=== PATIENT | male | born 1935 | race Caucasian/White ===

== ENCOUNTER 2019-07-03 10:36 | Emergency (ER) | payer MEDICARE, OTHER, SELFPAY ==
[2019-07-03 10:44] VITALS: BP 119/59; PULSE 77; RESP 20; TEMP 37.3; O2SAT 97; BMI 28.0
[2019-07-03 10:51] VITALS: O2SAT 98
[2019-07-03 11:08] LABS: Add Urine Microscopic? NO
[2019-07-03 11:23] LABS: Basophils % 0.4 %; Eosinophils % 0.3 %; Hematocrit 24.5 % (42.0-52.0); Hemoglobin 7.5 g/dL (11.7-16.6); Lymphocytes # 1.1 10^3/uL (0.8-4.8); Mean Corpuscular HGB Conc 30.6 g/dL (30.0-36.0); Mean Corpuscular Volume 88.1 fL (80-94); Mean Platelet Volume 9.6 fL (7.4-10.4); Neutrophils # 7.9 10^3/uL (1.8-7.7); Neutrophils % 77.8 %; Nucleated Red Blood Cells % 0 %; Platelet Count 540 10^3/cmm (130-400); Red Blood Count 2.78 10^6/uL (4.1-5.3); Red Cell Distribution Width 16.2 % (12.1-15.1); White Blood Count 10.1 10^3/uL (4.0-10.0)
[2019-07-03 11:28] LABS: Bilirubin Urine Neg (NEGATIVE); Blood Urine Neg (Negative); Glucose Urine UA Norm (Normal); Ketones Urine Negative (Negative); Nitrate Urine Negative (Negative); Protein Urine Neg (Negative); Urine Appearance Clear (CLEAR); Urine Color Straw (Yellow)
[2019-07-03 11:29] LABS: Leukocyte Esterase Urine Negative (Negative); Urobilinogen Urine 1 mg/dL (Negative)
[2019-07-03 11:30] VITALS: BP 126/52; PULSE 74; RESP 16; O2SAT 92
[2019-07-03 11:42] LABS: Alanine Aminotransferase 13 U/L (0-41); Albumin Level 3.3 g/dL (3.5-5.2); Alkaline Phosphatase 66 IU/L (40-130); Anion Gap 18.1 (5-19); Aspartate Amino Transferase 16 U/L (0-40); Blood Urea Nitrogen 13 mg/dL (8-23); Calcium 8.8 mg/dL (8.5-10.5); Carbon Dioxide 23 mmol/L (22-29); Chloride 95 mmol/L (98-107); Globulin 3.2 g/dL (1.3-4.6); Glucose 124 mg/dL (65-115); Osmolality Calculated 272 mOsm/kg (285-295); Potassium 4.1 mmol/L (3.5-5.1); Sodium 132 mmol/L (136-145); Total Bilirubin 0.2 mg/dL (0.15-1.2); Total Protein 6.5 g/dL (6.6-8.7)
[2019-07-03 12:00] VITALS: BP 122/63; PULSE 63; RESP 18; O2SAT 100
[2019-07-03 12:07] VITALS: BP 116/48; BP 121/54; BP 124/53; PULSE 75; PULSE 77; PULSE 80
[2019-07-03 12:40] VITALS: BP 117/57; PULSE 76; RESP 18; TEMP 37.2; O2SAT 97
--- NOTE | 2019-07-03 13:07 | ED_ITS ---
HPI - General Adult General: Chief complaint: General Medical Stated complaint: Tired and weak Time Seen by Provider: 07/03/19 10:44 History of Present Illness: HPI narrative: 84-year-old male sent to the emergency room because of weakness he has a history of chronic anemia is currently being worked up through specialist in [place] he has GI consult for evaluation for source of blood loss scheduled but due to the covered pandemic it has been delayed. This is been ongoing for 2 years. Associated symptoms: Deny chest pain, dyspnea, malaise, nausea, rash or vomiting Review of Systems Const: Denies: fever, chills, body aches, change in appetite, fatigue or malaise ENMT: Denies: throat pain, ear pain, nasal discharge or nasal congestion Card: Denies: chest pain, edema, shortness of breath on exertion or shortness of breath when lying down Resp: Denies: shortness of breath, productive cough or non-productive cough GI: Denies: abdominal pain, nausea, vomiting, vomiting blood, coffee grounds in vomit, diarrhea, constipation, bloating, blood in stool or black tarry stool : Denies: flank pain, painful urination, urinary frequency or urinary urgency Skin/Breast: Denies: rash or itching PFSH ED PFSH: Medical History (Updated 07/03/19 @ 12:15 by Primo Eagle DO) Anticoagulated Chronic a-fib COPD (chronic obstructive pulmonary disease) GERD (gastroesophageal reflux disease) H/O iron deficiency anemia History of prostate cancer Lung nodule Vitamin B 12 deficiency Surgical History History of open heart surgery Social History Smoking and tobacco status: former smoker Second hand smoke exposure: No Smoking risk assessment/counseling performed?: No Alcohol intake: never Desire information about alcohol rehabilitation?: No Counseling given: No Desire information about substance/drug rehabilitation?: No Counseling given: No Physical Exam Const: COMMON NORMALS: no apparent distress GENERAL APPEARANCE: cooperative and comfortable ORIENTATION/CONSCIOUSNESS: Yes awake, Yes oriented to person, Yes oriented to place and Yes oriented to time HENMT: COMMON NORMALS: normocephalic, head/scalp atraumatic, hearing grossly normal bilaterally, external ears normal, EAC's normal, TM's normal bilaterally, nasal mucous membranes and turbinates normal, moist oral mucous membranes and oropharynx normal HEAD & SCALP: normocephalic and atraumatic NOSE: nasal mucous membranes and turbinates normal EXTERNAL EAR: Yes external ears normal EXTERNAL AUDITORY CANAL: EAC's normal TYMPANIC MEMBRANE: TM's normal b ilaterally Eye: COMMON NORMALS: PERRL, EOMs intact bilaterally, conjunctivae normal and no scleral icterus CONJUNCTIVA: Yes conjunctivae normal PUPIL: Yes PERRL Neck/C-Spine: COMMON NORMALS: full ROM, no lymphadenopathy, supple and no JVD Lymph: LYMPHATIC: no lymphadenopathy noted and no lymphedema noted Resp: COMMON NORMALS: normal respiratory effort, no retractions, no use of accessory muscles and clear to auscultation bilaterally AUSCULTATION: clear to auscultation bilaterally Cardio: COMMON NORMALS: no JVD, regular rate, regular rhythm and no murmurs RATE: regular rate RHYTHM: regular rhythm GI: COMMON NORMALS: soft to palpation and no hepatosplenomegaly AUSCULTATIO N: Yes normoactive bowel sounds PALPATION: Yes soft, No tender, No guarding and Yes no hepatosplenomegaly OTHER: Rectal exam normal sphincter tone stool in the rectal vault is Hemoccult negative Extremity: COMMON NORMALS: normal to inspection, normal capillary refill, no clubbing, cyanosis or edema, no calf tenderness and no pedal edema Neuro: SENSORIUM/ORIENTATION: Yes oriented to person, Yes oriented to place and Yes oriented to time Skin: COMMON NORMALS: no rashes or lesions noted GENERAL SKIN EXAM: no rashes or lesions noted Course Vital Signs: Vital signs: Vital Signs Temperature 99 F 07/03/19 12:40 Pulse Rate 76 07/03/19 12:40 Respiratory Rate 18 07/03/19 12:40 Blood Pressure 117/57 07/03/19 12:40 Pulse Oximetry 97 07/03/19 12:40 MDM - General Adult MDM Narrative: Medical decision making narrative: This is been a chronic issue for this patient. He has been being worked up for anemia evidently for approximately a year or 2. He is scheduled for heme oncology GI evaluation in [place] but is been delayed because a Covid pandemic. His vital signs are stable his orthostatics are normal to go ahead and discharge him home for now and will have him follow-up with his doctor's office in 3 days for repeat hemoglobin. He should return if he has any worsening or change. Lab Data: Labs: Lab Results 07/03/19 07/03/19 07/03/19 Range/Units 10:54 11:15 11:15 WBC 10.1 H (4.0-10.0) 10^3/ uL RBC 2.78 L (4.1-5.3) 10^6/u L Hgb 7.5 L (11.7-16.6) g/dL Hct 24.5 L (42.0-52.0) % MCV 88.1 (80-94) fL MCH 27.0 L (28.0-34.0) pg MCHC 30.6 (30.0-36.0) g/dL RDW 16.2 H (12.1-15.1) % Plt Count 540 H (130-400) 10^3/c mm MPV 9.6 (7.4-10.4) fL Neut % (Auto) 77.8 % Lymph % (Auto) 11.0 % [place] % (Auto) 10.0 % Eos % (Auto) 0.3 % Baso % (Auto) 0.4 % Neut # (Auto) 7.9 H (1.8-7.7) 10^3/u L Lymph # (Auto) 1.1 (0.8-4.8) 10^3/u L [place] # (Auto) 1.0 H (0.2-0.9) 10^3/u L Eos # (Auto) 0.0 (0.0-0.8) 10^3/u L Baso # (Auto) 0.0 (0.0-0.1) 10^3/u L Nucleated RBC % (a uto) 0 % Nucleated RBCs # 0.0 /100WBC Sodium 132 L (136-145) mmol/L Potassium 4.1 (3.5-5.1) mmol/L Chloride 95 L (98-107) mmol/L Carbon Dioxide 23 (22-29) mmol/L Anion Gap 18.1 (5-19) BUN 13 (8-23) mg/dL Creatinine 1.2 (0.7-1.2) mg/dL Glucose 124 H (65-115) mg/dL Calculated Osmolal ity 272 L (285-295) mOsm/k g Calcium 8.8 (8.5-10.5) mg/dL Total Bilirubin 0.2 (0.15-1.2) mg/dL AST 16 (0-40) U/L ALT 13 (0-41) U/L Alkaline Phosphata se 66 (40-130) IU/L Total Protein 6.5 L (6.6-8.7) g/dL Albumin 3.3 L (3.5-5.2) g/dL Globulin 3.2 (1.3-4.6) g/dL Urine Color Straw (Yellow) Urine Appearance Clear (CLEAR) Urine pH 7.0 (5-7) Ur Specific Gravit y 1.010 (1.005-1.030) Urine Protein Neg (Negative) Urine Glucose (UA) Norm (Normal) Urine Ketones Negative (Negative) Urine Blood Neg (Negative) Urine Nitrate Negative (Negative) Urine Bilirubin Neg (NEGATIVE) Urine Urobilinogen 1 H (Negative) mg/dL Ur Leukocyte Nusrat ase Negative (Negative) Discharge Plan Discharge Patient Disposition: Home, Self-Care Clinical Impression: Anemia Condition: Stable Prescriptions: No Action Xarelto 20 mg tablet 20 mg PO DAILY Qty: 90 RF: 1 calcium acetate 667 mg tablet 667 mg PO DAILY RF: 0 Motegrity 2 mg tablet 2 mg PO Q24H 30 Days Qty: 30 RF: 5 loratadine [Allergy Relief (loratadine)] 10 mg tablet 10 mg PO DAILY 30 Days Qty: 30 RF: 5 amiodarone 200 mg Tablet 200 mg PO DAILY RF: 0 Amitiza 24 mcg Capsule 24 mcg PO BID RF: 0 albuterol sulfate 2.5 mg /3 mL (0.083 %) Solution For Nebulization 2.5 mg INHALATION Q6H PRN (Reason: Shortness Of Breath) RF: 0 cyanocobalamin (vitamin B-12) 1,000 mcg/mL Kit 1,000 mcg IM Q30D RF: 0 Referrals: Jason Blancas, VIRAJ [Primary Care Provider] - Discharge Diet: Usual diet Discharge Activity: Resume usual activity Activity Restrictions/Additional Instructions: Keep follow-up appointments with specialty clinics as has previously been scheduled. If you have worsening symptoms recheck. Would recheck a hemoglobin and at your doctor's office in 3 days. 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
== END 2019-07-03 12:41 | disposition home or self-care (01) ==
PROVIDERS: Emergency Provider Family Medicine; Family Provider Nurse Practitioner Family; PCP Nurse Practitioner Family
DX: D64.9 Anemia, unspecified (principal); I48.91 Unspecified atrial fibrillation; J44.9 Chronic obstructive pulmonary disease, unspecified; K21.9 Gastro-esophageal reflux disease without esophagitis; E53.8 Deficiency of other specified B group vitamins; Z87.891 Personal history of nicotine dependence; Z85.46 Personal history of malignant neoplasm of prostate; Z98.890 Other specified postprocedural states
CPT/HCPCS: 12345; 36415; 80053; 81003; 85025; 99283

== ENCOUNTER → 2019-08-31 10:58 | Outpatient (BNVA) | payer MEDICARE, OTHER, SELFPAY | PROVIDERS: Family Provider Nurse Practitioner Family; PCP Nurse Practitioner Family; Visit Provider Nurse Practitioner Family | DX: Z12.5 Encounter for screening for malignant neoplasm of prostate (principal); E78.2 Mixed hyperlipidemia; Z86.2 Personal history of diseases of the blood and blood-forming organs and certain disorders involving the immune mechanism; D64.9 Anemia, unspecified; Z79.01 Long term (current) use of anticoagulants; Z85.46 Personal history of malignant neoplasm of prostate; E53.8 Deficiency of other specified B group vitamins; I48.20 Chronic atrial fibrillation, unspecified; E55.9 Vitamin D deficiency, unspecified; Z00.00 Encounter for general adult medical examination without abnormal findings; R63.4 Abnormal weight loss; Z79.899 Other long term (current) drug therapy | CPT/HCPCS: 36415; 80053; 80061; 81001; 82306; 82607; 83036; 83540; 84443; 85025; 85610; G0103 ==

== ENCOUNTER → 2020-02-22 11:23 | Outpatient (BNVA) | payer MEDICARE, OTHER, SELFPAY | PROVIDERS: Family Provider Nurse Practitioner Family; PCP Nurse Practitioner Family; Visit Provider Family Medicine | DX: R05 Cough (principal); J30.9 Allergic rhinitis, unspecified | CPT/HCPCS: 71046 ==

== ENCOUNTER → 2020-03-09 16:44 | Outpatient (BNVA) | payer MEDICARE, OTHER, SELFPAY | PROVIDERS: Family Provider Nurse Practitioner Family; PCP Nurse Practitioner Family; Visit Provider Nurse Practitioner Family | DX: S16.1XXA Strain of muscle, fascia and tendon at neck level, initial encounter (principal); X58.XXXA Exposure to other specified factors, initial encounter | CPT/HCPCS: 72040 ==

== ENCOUNTER → 2020-04-05 11:54 | Outpatient (BNVA) | payer MEDICARE, OTHER, SELFPAY | PROVIDERS: Family Provider Nurse Practitioner Family; PCP Nurse Practitioner Family; Visit Provider Nurse Practitioner Family | DX: C44.40 Unspecified malignant neoplasm of skin of scalp and neck (principal); N39.0 Urinary tract infection, site not specified | CPT/HCPCS: 81003; 87077; 87086; 87184 ==

== ENCOUNTER → 2020-08-30 10:14 | Outpatient (BNVA) | payer MEDICARE, OTHER, SELFPAY | PROVIDERS: Family Provider Nurse Practitioner Family; PCP Nurse Practitioner Family; Visit Provider Nurse Practitioner Family | DX: D64.9 Anemia, unspecified (principal); Z79.899 Other long term (current) drug therapy; E78.2 Mixed hyperlipidemia; R53.83 Other fatigue; E55.9 Vitamin D deficiency, unspecified; Z85.46 Personal history of malignant neoplasm of prostate | CPT/HCPCS: 80053; 80061; 81003; 82306; 83036; 84153; 84443; 85025 ==

== ENCOUNTER → 2021-09-18 11:03 | Outpatient (BNVA) | payer MEDICARE, OTHER, SELFPAY | PROVIDERS: Family Provider Nurse Practitioner Family; PCP Nurse Practitioner Family; Visit Provider Nurse Practitioner | DX: R53.83 Other fatigue (principal); E55.9 Vitamin D deficiency, unspecified | CPT/HCPCS: 80053; 82306; 84443; 85025 ==

== ENCOUNTER → 2021-11-28 12:41 | Outpatient (BNVA) | payer MEDICARE, OTHER, SELFPAY | PROVIDERS: Family Provider Nurse Practitioner Family; PCP Nurse Practitioner Family; Referring Provider Nurse Practitioner; Visit Provider Student in an Organized Health Care Education/Training Program | DX: M19.011 Primary osteoarthritis, right shoulder (principal) | CPT/HCPCS: 73030; 99204 ==

== ENCOUNTER → 2021-12-08 09:28 | Outpatient (BNVA) | payer MEDICARE, OTHER, SELFPAY | PROVIDERS: Family Provider Nurse Practitioner Family; PCP Nurse Practitioner Family; Visit Provider Student in an Organized Health Care Education/Training Program | DX: M19.011 Primary osteoarthritis, right shoulder (principal) | CPT/HCPCS: 20610; 77002; 99213; J3301 ==

== ENCOUNTER → 2021-12-25 08:12 | Outpatient (BNVA) | payer MEDICARE, OTHER, SELFPAY | PROVIDERS: Family Provider Nurse Practitioner Family; PCP Nurse Practitioner; Visit Provider Nurse Practitioner | DX: Z79.01 Long term (current) use of anticoagulants (principal) | CPT/HCPCS: 85610 ==

== ENCOUNTER → 2022-01-01 10:09 | Outpatient (BNVA) | payer MEDICARE, OTHER, SELFPAY | PROVIDERS: Family Provider Nurse Practitioner Family; PCP Nurse Practitioner; Visit Provider Nurse Practitioner | DX: I48.20 Chronic atrial fibrillation, unspecified (principal); Z79.01 Long term (current) use of anticoagulants | CPT/HCPCS: 85610 ==

== ENCOUNTER → 2022-01-08 09:05 | Outpatient (BNVA) | payer MEDICARE, OTHER, SELFPAY | PROVIDERS: Family Provider Nurse Practitioner Family; PCP Nurse Practitioner; Visit Provider Nurse Practitioner | DX: I48.20 Chronic atrial fibrillation, unspecified (principal); Z79.01 Long term (current) use of anticoagulants | CPT/HCPCS: 85610 ==

== ENCOUNTER → 2022-01-12 07:15 | Outpatient (BNVA) | payer MEDICARE, OTHER, SELFPAY | PROVIDERS: Family Provider Nurse Practitioner Family; PCP Nurse Practitioner; Visit Provider Student in an Organized Health Care Education/Training Program | DX: M19.011 Primary osteoarthritis, right shoulder (principal) | CPT/HCPCS: 99213 ==

== ENCOUNTER → 2022-01-15 09:21 | Outpatient (BNVA) | payer MEDICARE, OTHER, SELFPAY | PROVIDERS: Family Provider Nurse Practitioner Family; PCP Nurse Practitioner; Visit Provider Nurse Practitioner | DX: I48.20 Chronic atrial fibrillation, unspecified (principal); R05.9 Cough, unspecified | CPT/HCPCS: 85610; 87426 ==

== ENCOUNTER → 2022-01-22 08:26 | Outpatient (BNVA) | payer MEDICARE, OTHER, SELFPAY | PROVIDERS: Family Provider Nurse Practitioner Family; PCP Nurse Practitioner; Visit Provider Nurse Practitioner | DX: I48.20 Chronic atrial fibrillation, unspecified (principal); Z79.01 Long term (current) use of anticoagulants | CPT/HCPCS: 85610 ==

== ENCOUNTER → 2022-01-29 08:47 | Outpatient (BNVA) | payer MEDICARE, OTHER, SELFPAY | PROVIDERS: Family Provider Nurse Practitioner Family; PCP Nurse Practitioner; Visit Provider Nurse Practitioner | DX: I48.20 Chronic atrial fibrillation, unspecified (principal) | CPT/HCPCS: 85610 ==

== ENCOUNTER → 2022-02-05 09:23 | Outpatient (BNVA) | payer MEDICARE, OTHER, SELFPAY | PROVIDERS: Family Provider Nurse Practitioner Family; PCP Nurse Practitioner; Visit Provider Nurse Practitioner | DX: I48.20 Chronic atrial fibrillation, unspecified (principal); Z79.01 Long term (current) use of anticoagulants | CPT/HCPCS: 85610 ==

== ENCOUNTER → 2022-02-12 08:42 | Outpatient (BNVA) | payer MEDICARE, OTHER, SELFPAY | PROVIDERS: Family Provider Nurse Practitioner Family; PCP Nurse Practitioner; Visit Provider Nurse Practitioner | DX: I48.20 Chronic atrial fibrillation, unspecified (principal); Z79.01 Long term (current) use of anticoagulants | CPT/HCPCS: 85610 ==

== ENCOUNTER → 2022-02-19 09:51 | Outpatient (BNVA) | payer MEDICARE, OTHER, SELFPAY | PROVIDERS: Family Provider Nurse Practitioner Family; PCP Nurse Practitioner; Visit Provider Nurse Practitioner | DX: I48.20 Chronic atrial fibrillation, unspecified (principal); Z79.01 Long term (current) use of anticoagulants | CPT/HCPCS: 85610 ==

== ENCOUNTER → 2022-02-26 15:31 | Outpatient (BNVA) | payer MEDICARE, OTHER, SELFPAY | PROVIDERS: Family Provider Nurse Practitioner Family; PCP Nurse Practitioner; Visit Provider Nurse Practitioner | DX: I48.20 Chronic atrial fibrillation, unspecified (principal); Z79.01 Long term (current) use of anticoagulants | CPT/HCPCS: 85610 ==

== ENCOUNTER → 2022-03-05 09:46 | Outpatient (BNVA) | payer MEDICARE, OTHER, SELFPAY | PROVIDERS: Family Provider Nurse Practitioner Family; PCP Nurse Practitioner; Visit Provider Nurse Practitioner | DX: I48.20 Chronic atrial fibrillation, unspecified (principal); Z79.01 Long term (current) use of anticoagulants | CPT/HCPCS: 85610 ==

== ENCOUNTER → 2022-03-14 11:13 | Outpatient (BNVA) | payer MEDICARE, OTHER, SELFPAY | PROVIDERS: Family Provider Nurse Practitioner Family; PCP Nurse Practitioner; Visit Provider Nurse Practitioner | DX: J11.1 Influenza due to unidentified influenza virus with other respiratory manifestations (principal); I48.20 Chronic atrial fibrillation, unspecified | CPT/HCPCS: 85610 ==

== ENCOUNTER → 2022-03-20 09:26 | Outpatient (BNVA) | payer MEDICARE, OTHER, SELFPAY | PROVIDERS: Family Provider Nurse Practitioner Family; PCP Nurse Practitioner; Visit Provider Nurse Practitioner | DX: I48.20 Chronic atrial fibrillation, unspecified (principal); Z79.01 Long term (current) use of anticoagulants | CPT/HCPCS: 85610 ==

== ENCOUNTER → 2022-03-27 09:15 | Outpatient (BNVA) | payer MEDICARE, OTHER, SELFPAY | PROVIDERS: Family Provider Nurse Practitioner Family; PCP Nurse Practitioner; Visit Provider Nurse Practitioner | DX: I48.20 Chronic atrial fibrillation, unspecified (principal) | CPT/HCPCS: 85610 ==

== ENCOUNTER → 2022-04-09 10:05 | Outpatient (BNVA) | payer MEDICARE, SELFPAY | PROVIDERS: Family Provider Nurse Practitioner Family; PCP Nurse Practitioner; Visit Provider Nurse Practitioner | DX: I48.20 Chronic atrial fibrillation, unspecified (principal); Z79.01 Long term (current) use of anticoagulants | CPT/HCPCS: 85610 ==

== ENCOUNTER → 2022-04-11 08:48 | Outpatient (BNVA) | payer MEDICARE, SELFPAY | PROVIDERS: Family Provider Nurse Practitioner Family; PCP Nurse Practitioner; Visit Provider Nurse Practitioner | DX: I48.20 Chronic atrial fibrillation, unspecified (principal); Z79.01 Long term (current) use of anticoagulants | CPT/HCPCS: 85610 ==

== ENCOUNTER → 2022-04-16 08:39 | Outpatient (BNVA) | payer MEDICARE, SELFPAY | PROVIDERS: Family Provider Nurse Practitioner Family; PCP Nurse Practitioner; Visit Provider Nurse Practitioner | DX: I48.20 Chronic atrial fibrillation, unspecified (principal); Z79.01 Long term (current) use of anticoagulants | CPT/HCPCS: 85610 ==

== ENCOUNTER → 2022-04-23 09:46 | Outpatient (BNVA) | payer MEDICARE, SELFPAY | PROVIDERS: Family Provider Nurse Practitioner Family; PCP Nurse Practitioner; Visit Provider Nurse Practitioner | DX: I48.20 Chronic atrial fibrillation, unspecified (principal); Z79.01 Long term (current) use of anticoagulants | CPT/HCPCS: 85610 ==

== ENCOUNTER → 2022-05-03 09:06 | Outpatient (BNVA) | payer MEDICARE, SELFPAY | PROVIDERS: Family Provider Nurse Practitioner Family; PCP Nurse Practitioner; Visit Provider Nurse Practitioner | DX: I48.20 Chronic atrial fibrillation, unspecified (principal); Z79.01 Long term (current) use of anticoagulants | CPT/HCPCS: 85610 ==

== ENCOUNTER → 2022-05-21 11:17 | Outpatient (BNVA) | payer MEDICARE, SELFPAY | PROVIDERS: Family Provider Nurse Practitioner Family; PCP Nurse Practitioner; Visit Provider Nurse Practitioner | DX: I48.20 Chronic atrial fibrillation, unspecified (principal); Z79.01 Long term (current) use of anticoagulants | CPT/HCPCS: 85610 ==

== ENCOUNTER → 2022-05-31 09:19 | Outpatient (BNVA) | payer MEDICARE, SELFPAY | PROVIDERS: Family Provider Nurse Practitioner Family; PCP Nurse Practitioner; Visit Provider Nurse Practitioner | DX: E78.2 Mixed hyperlipidemia (principal); Z12.5 Encounter for screening for malignant neoplasm of prostate | CPT/HCPCS: 80053; 80061; 84443; 85025; G0103 ==

== ENCOUNTER → 2022-06-07 09:56 | Outpatient (BNVA) | payer MEDICARE, SELFPAY | PROVIDERS: Family Provider Nurse Practitioner Family; PCP Nurse Practitioner; Visit Provider Student in an Organized Health Care Education/Training Program | DX: M19.011 Primary osteoarthritis, right shoulder (principal) | CPT/HCPCS: 20610; 99214; J3301 ==

== ENCOUNTER 2022-06-16 09:08 | Emergency (ER) | payer MEDICARE, OTHER, SELFPAY ==
[2022-06-16 09:19] VITALS: BP 143/83; PULSE 75; RESP 14; O2SAT 99
--- NOTE | 2022-06-16 09:19 | ED_ITS ---
HPI - Extremity Injury (Upper) General: Chief Complaint: Wound/Laceration Stated Complaint: Right hand lac Time Seen by Provider: 06/16/22 09:17 Source: patient Mode of arrival: ambulatory Limitations: no limitations History of Present Illness: 87-year-old male states that last night he did hit his right hand on a metal piece on the bathroom stall he does have a laceration over the dorsal aspect of his right hand is currently has some bleeding he denies any pain Associated symptoms: Denies neck pain Review of Systems 2 Const: Denies: fever(s), chills, body aches or change in appetite Eyes: Denies: blurry vision or eye discomfort ENMT: Denies: throat pain or dental pain Card: Denies: chest pain Resp: Denies: dyspnea GI: Denies: abdominal pain, nausea, vomiting or diarrhea : Denies: dysuria Musc: Denies: neck pain or back pain Skin/Breast: Denies: rash Neuro: Denies: headache(s) Psych: Denies: depression Kervin/Lymph: Denies: easy bruising All/Imm: Denies: urticaria PFSH ED PFSH: Medical History Anemia Anticoagulated Cervical strain Chronic a-fib COPD (chronic obstructive pulmonary disease) GERD (gastroesophageal reflux disease) H/O iron deficiency anemia History of nonmelanoma skin cancer History of prostate cancer Lower respiratory infection Lung nodule Mixed hyperlipidemia Primary osteoarthritis, right shoulder Skin cancer of scalp Upper respiratory infection Vitamin B 12 deficiency Vitamin D deficiency Surgical History History of open heart surgery Social History Smoking and tobacco status: never smoked Second hand smoke exposure: No Smoking risk assessment/counseling performed?: No Alcohol intake: never Desire information about alcohol rehabilitation?: No Counseling given: No Desire information about substance/drug rehabilitation?: No Counseling given: No Physical Exam Const: COMMON NORMALS: no acute distress and patient oriented x3 HENMT: COMMON NORMALS: normocephalic HEAD & SCALP: normocephalic Eye: COMMON NORMALS: conjunctivae normal CONJUNCTIVA: Yes conjunctivae normal Neck/C-Spine: COMMON NORMALS: supple Chest: COMMONS NORMALS: normal inspection of the chest Resp: COMMON NORMALS: normal respiratory effort Cardio: COMMON NORMALS: regular rate RATE: regular rate GI: INSPECTION: Yes normal to inspection Extremity: OTHER: 3cm laceration to dorsum of right hand neurovascular intact no tendon involvement Neuro: COMMON NORMALS: patient oriented x3 Psych: COMMON NORMALS: mental status grossly normal Skin: COMMON NORMALS: no rashes or lesions noted GENERAL SKIN EXAM: no rashes or lesions noted Procedures Laceration Laceration 1: Site: hand Side (If applicable): right Size (cm): 3 Description: linear Depth: simple, single layer Local Anesthetic: lidocaine 1% Amount of anesthesia used (mL): 8 Pre-repair: wound explored and irrigated extensively Skin layer closed with: nylon Size (cm): 4-0 Number of sutures: 3 Technique: horizontal mattress MDM - Extremity Injury (Upper) Medical Decision Making Patient presents here with laceration to his right dorsum of his hand did suture and washed it thoroughly we will place him on antibiotics for prophylaxis he is to have his sutures removed in 7 to 10 days. Return if worsening. Discharge Plan Discharge Patient Disposition: Home Clinical Impression: Laceration of hand, right Condition: Stable Prescriptions: New amoxicillin-pot clavulanate [Augmentin] 500-125 mg tablet 1 tab PO BID Qty: 14 0RF No Action aspirin 81 mg tablet,delayed release (DR/EC) 81 mg PO DAILY lidocaine HCl [Xylocaine] 10 mg/mL (1 %) solution 1 ml IM ONCE Qty: 1 0RF ceftriaxone 1 gram recon soln 1 g IM ONCE Qty: 1 0RF ketoconazole 2 % shampoo 1 applic topical .2x weekly Qty: 120 6RF atorvastatin 40 mg tablet PO ropinirole 0.25 mg tablet 0.25 mg PO BEDTIME Qty: 30 1RF calcium acetate(phosphat bind) 667 mg tablet 667 mg PO DAILY Qty: 30 5RF montelukast [Singulair] 10 mg tablet 10 mg PO DAILY 90 Days Qty: 90 1RF levocetirizine 5 mg tablet See Rx Instructions .ROUTE .COMPLEX Qty: 90 0RF Dose Instruction: TAKE 1 TABLET BY MOUTH DAILY NEEDED FOR ALLERGY SYMPTOMS Rx Instructions: TAKE 1 TABLET BY MOUTH DAILY NEEDED FOR ALLERGY SYMPTOMS lubiprostone [Amitiza] 24 mcg capsule See Rx Instructions .ROUTE .COMPLEX Qty: 60 5RF Dose Instruction: TAKE 1 CAPSULE BY MOUTH TWICE DAILY Rx Instructions: TAKE 1 CAPSULE BY MOUTH TWICE DAILY warfarin 4 mg tablet See Rx Instructions .ROUTE .COMPLEX Qty: 30 0RF Dose Instruction: Take 1 tablet by mouth once daily Rx Instructions: Take 1 tablet by mouth once daily ferrous sulfate 325 mg (65 mg iron) tablet 325 mg PO DAILY Qty: 90 0RF pantoprazole 40 mg tablet,delayed release (DR/EC) See Rx Instructions .ROUTE .COMPLEX Qty: 90 0RF Dose Instruction: TAKE 1 TABLET BY MOUTH DAILY Rx Instructions: TAKE 1 TABLET BY MOUTH DAILY pantoprazole 40 mg tablet,delayed release (DR/EC) 40 mg PO DAILY Qty: 14 0RF Rx Instructions: emergency supply while he waits on mail order. see if insurance will approve. 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
[2022-06-16] MEDS: cefTRIAXone 1,000 MG in water for injection-sterile 2.1 ML 1 MG IM (09:33)
--- NOTE | 2022-06-16 09:45 | PC.NURSE ---
PT WOUND WRAPPED WITH 4X4 AND COBAN WITH INSTRUCTIONS TO REPLACE IN ONE HOUR. PT VERBALIZED UNDERSTANDING.
[2022-06-16 09:53] VITALS: PULSE 80; RESP 16; O2SAT 97
== END 2022-06-16 09:57 | disposition home or self-care (01) ==
PROVIDERS: Emergency Provider Emergency Medicine; PCP Nurse Practitioner
DX: S61.411A Laceration without foreign body of right hand, initial encounter (principal); Z79.82 Long term (current) use of aspirin; Z79.01 Long term (current) use of anticoagulants; J44.9 Chronic obstructive pulmonary disease, unspecified; Z85.46 Personal history of malignant neoplasm of prostate; E78.2 Mixed hyperlipidemia; Z85.828 Personal history of other malignant neoplasm of skin; W22.09XA Striking against other stationary object, initial encounter
CPT/HCPCS: 12002; 96372; 99284; J0696

== ENCOUNTER → 2022-06-18 09:11 | Outpatient (BNVA) | payer MEDICARE, OTHER, SELFPAY | PROVIDERS: PCP Nurse Practitioner; Visit Provider Nurse Practitioner | DX: I48.20 Chronic atrial fibrillation, unspecified (principal); Z79.01 Long term (current) use of anticoagulants | CPT/HCPCS: 85610 ==

== ENCOUNTER → 2022-08-15 10:49 | Outpatient (BNVA) | payer MEDICARE, OTHER, SELFPAY | PROVIDERS: PCP Nurse Practitioner; Visit Provider Internal Medicine Cardiovascular Disease | DX: E78.5 Hyperlipidemia, unspecified (principal); R03.0 Elevated blood-pressure reading, without diagnosis of hypertension; I48.91 Unspecified atrial fibrillation; I34.0 Nonrheumatic mitral (valve) insufficiency; Z79.01 Long term (current) use of anticoagulants | CPT/HCPCS: 36415; 85610; 93005; 99204 ==

== ENCOUNTER → 2022-08-16 10:07 | Outpatient (BNVA) | payer MEDICARE, OTHER, SELFPAY | PROVIDERS: PCP Nurse Practitioner; Visit Provider Internal Medicine Cardiovascular Disease | DX: R03.0 Elevated blood-pressure reading, without diagnosis of hypertension (principal); I48.91 Unspecified atrial fibrillation; R07.9 Chest pain, unspecified; E78.5 Hyperlipidemia, unspecified; I34.0 Nonrheumatic mitral (valve) insufficiency | CPT/HCPCS: 93005 ==

== ENCOUNTER → 2022-08-17 09:53 | Outpatient (BNVA) | payer MEDICARE, OTHER, SELFPAY | PROVIDERS: PCP Nurse Practitioner; Referring Provider Nurse Practitioner; Visit Provider Specialist | DX: I48.91 Unspecified atrial fibrillation (principal); Z79.01 Long term (current) use of anticoagulants; Z86.73 Personal history of transient ischemic attack (TIA), and cerebral infarction without residual deficits | CPT/HCPCS: 99204 ==

== ENCOUNTER → 2022-09-14 14:41 | Outpatient (BNVA) | payer MEDICARE, OTHER, SELFPAY | PROVIDERS: PCP Nurse Practitioner; Visit Provider Internal Medicine Cardiovascular Disease | DX: I48.20 Chronic atrial fibrillation, unspecified (principal); Z79.01 Long term (current) use of anticoagulants | CPT/HCPCS: 85610 ==

== ENCOUNTER → 2022-10-23 16:31 | Outpatient (BNVA) | payer MEDICARE, OTHER, SELFPAY | PROVIDERS: PCP Nurse Practitioner; Visit Provider Nurse Practitioner | DX: I48.91 Unspecified atrial fibrillation (principal) | CPT/HCPCS: 85610 ==

== ENCOUNTER → 2022-10-30 13:52 | Outpatient (BNVA) | payer MEDICARE, OTHER, SELFPAY | PROVIDERS: PCP Nurse Practitioner; Visit Provider Nurse Practitioner | DX: Z79.01 Long term (current) use of anticoagulants (principal) | CPT/HCPCS: 85610 ==

== ENCOUNTER → 2022-10-31 13:30 | Outpatient (BNVA) | payer MEDICARE, OTHER, SELFPAY | PROVIDERS: PCP Nurse Practitioner; Visit Provider Nurse Practitioner Family | DX: I48.91 Unspecified atrial fibrillation (principal); Z79.01 Long term (current) use of anticoagulants; Z79.82 Long term (current) use of aspirin | CPT/HCPCS: 99214 ==

== ENCOUNTER → 2022-11-01 09:02 | Outpatient (BNVA) | payer MEDICARE, OTHER, SELFPAY | PROVIDERS: PCP Nurse Practitioner; Referring Provider Specialist; Visit Provider Specialist | DX: Z79.01 Long term (current) use of anticoagulants; I48.91 Unspecified atrial fibrillation; F03.90 Unspecified dementia, unspecified severity, without behavioral disturbance, psychotic disturbance, mood disturbance, and anxiety; M19.011 Primary osteoarthritis, right shoulder; M47.812 Spondylosis without myelopathy or radiculopathy, cervical region; R26.89 Other abnormalities of gait and mobility | CPT/HCPCS: 96116; 99215 ==

== ENCOUNTER → 2022-11-01 09:02 | Outpatient (BNVA) | payer MEDICARE, OTHER, SELFPAY | PROVIDERS: PCP Nurse Practitioner; Referring Provider Specialist; Visit Provider Specialist | DX: E53.8 Deficiency of other specified B group vitamins (principal); Z79.01 Long term (current) use of anticoagulants; R29.90 Unspecified symptoms and signs involving the nervous system; I48.91 Unspecified atrial fibrillation; F03.90 Unspecified dementia, unspecified severity, without behavioral disturbance, psychotic disturbance, mood disturbance, and anxiety; R26.9 Unspecified abnormalities of gait and mobility; M19.011 Primary osteoarthritis, right shoulder; M47.812 Spondylosis without myelopathy or radiculopathy, cervical region | CPT/HCPCS: 36415; 82607; 82728; 85025; 85651 ==

== ENCOUNTER 2022-11-02 06:54 | Outpatient (CLI) | payer MEDICARE, OTHER, SELFPAY ==
--- NOTE | 2022-11-02 07:00 | USCV_ITS ---
Damion Rojas Age: 87 Gender: M : 1935 Exam Date: 11/02/2022 07:16 Ordering Phys: Merced Esparza Technologist: MARLON Exam Location: [facility] [place] Indication: Fatique, Dizziness BP: 123 / 79 HR: 76 Rhythm: Sinus Technical Quality: Adequate MEASUREMENTS (Male / Female) Normal Values 2D ECHO LVOT Diameter 2.0 cm LV Ejection Fraction MOD 2C 69.1 % LV Ejection Fraction 2C AL 69.7 % LA Diameter 4.2 cm LA Width 3.8 cm LA Height 5.9 cm RA Width 4.3 cm RA Height 6.0 cm Aorta at Sinotubular Diameter 2.6 cm IVC Diameter 1.6 cm M-MODE Aortic Annulus Diameter 2.6 cm LA Ao Ratio MM 1.7 MV E Point Septal Separation 1.1 cm DOPPLER AV Peak Velocity 142.0 cm/s LVOT Peak Velocity 86.0 cm/s AV Area Cont Eq vti 1.5 cm squared AV Area Cont Eq pk 1.9 cm squared MV Peak Velocity 155.0 cm/s MV Area PHT 5.9 cm squared MV E' Velocity 80.0 cm/s Mitral E to MV E' Ratio 11.7 Mitral E to LV E' Lateral Ratio 9.1 Mitral E to LV E' Septal Ratio 16.4 TR Peak Velocity 256.9 cm/s TR Peak Gradient 26.4 mmHg TR Mean Velocity 200.1 cm/s TR Mean Gradient 17.0 mmHg TR Velocity Time Integral 80.0 cm TV Peak E Velocity 68.0 cm/s Right Atrial Pressure 3.0 mmHg Pulmonary Artery Systolic Pressu 29.4 mmHg FINDINGS Left Ventricle Normal left ventricular size and systolic function, EF 70 %. No regional wall motion abnormalities. Right Ventricle The right ventricle is normal in size and function. Right Atrium Moderately increased right atrial size. Left Atrium Mildly increased left atrial size. Mitral Valve Moderate mitral annular calcification. Mild-moderate mitral valve regurgitation. Aortic Valve Thickened aortic valve. Trace aortic valve regurgitation. Tricuspid Valve Vsipjzoz-bj-gbssqb tricuspid valve regurgitation. Estimated pulmonary artery peak systolic pressure 29 mmHg Pulmonic Valve Structurally normal pulmonic valve without significant stenosis. There is no pulmonic regurgitation. Pericardium Normal pericardium without effusion. Aorta Normal ascending aorta dimension. IVC Normal inferior vena cava. CONCLUSIONS Normal left ventricular size and systolic function, EF 70 %. No regional wall motion abnormalities. Moderately increased right atrial size. Mildly increased left atrial size. Eiikusgj-ky-bffpta tricuspid valve regurgitation. Estimated pulmonary artery peak systolic pressure 29 mmHg. Thickened aortic valve. Trace aortic valve regurgitation. Moderate mitral annular calcification. Mild-moderate mitral valve regurgitation. There is no pericardial effusion. There are no intracardiac masses. No similar previous studies are available for comparison Dr Tom Allison MD FACC (Electronically Signed) Final Date: 02 November 2022 18:04 S
== END 2022-11-02 06:55 | disposition home or self-care (01) ==
LOC: RAD 06:55
PROVIDERS: PCP Nurse Practitioner; Visit Provider Nurse Practitioner Family
DX: I08.3 Combined rheumatic disorders of mitral, aortic and tricuspid valves (principal); R53.83 Other fatigue; R42 Dizziness and giddiness
CPT/HCPCS: 93306; 99214

== ENCOUNTER 2022-11-29 10:05 | Outpatient (CLI) | payer MEDICARE, OTHER, SELFPAY ==
--- NOTE | 2022-11-29 10:15 | MR_ITS ---
WS: [id number] MRI CERVICAL SPINE NONCONTRAST TECHNIQUE: Sagittal T1, T2 and STIR imaging. Axial T2, gradient, and fiesta imaging. CLINICAL INFORMATION: R26.9 - Unspecified abnormalities of gait and mobility COMPARISON: None. FINDINGS: Mild cervical curve. Straightening of the normal cervical lordosis. Disc space narrowing with segment ation anomaly C3-C4. C2-C3: Normal. C3-C4: Congenital segmentation anomaly. Mild to moderate LEFT bony foraminal narrowing. RIGHT foramen is patent. Mild facet arthropathy. C4-C5: Moderate facet arthropathy worse on the LEFT. Mild osteophytic ridging. Spinal canal is patent . Moderate to severe LEFT and mild to moderate RIGHT bony foraminal narrowing. C5-C6: Disc osteophyte complex with endplate ridging. Mild central canal stenosis. Tiny LEFT paracent ral protrusion. Moderate to advanced facet arthropathy. Moderate LEFT and mild RIGHT bony foraminal n arrowing. C6-C7: Mild disc osteophyte complex with endplate ridging. Moderate LEFT and mild RIGHT bony foramina l narrowing. Moderate facet arthropathy. C7-T1: Mild LEFT and no significant RIGHT foraminal narrowing. Spinal canal is patent. Visualized brain stem structures: Normal. Prevertebral soft tissues: Normal. IMPRESSION: 1. Straightening of the normal cervical lordosis. Congenital segmentation anomaly C3-C4. 2. Moderate to severe bony foraminal narrowing worse at LEFT C3-C4, LEFT C4-C5, and LEFT C6-7. 3. Moderate to advanced facet arthropathy LEFT C3-C4 and LEFT C4-C5. 4. Mild central canal stenosis C5-C6 with a tiny LEFT paracentral protrusion.
--- NOTE | 2022-11-29 11:00 | MR_ITS ---
WS: [id number] MRI HEAD WITHOUT CONTRAST TECHNIQUE: Sagittal T1, T2 axial, T2 axial FLAIR, axial and coronal T1 images, axial susceptibility w eighted imaging, axial diffusion weighted images, and coronal T2 images were obtained. CLINICAL INFORMATION: R29.90 - Unspecified symptoms and signs involving the ner... COMPARISON: None. FINDINGS: No evidence of restricted diffusion to suggest acute ischemia. Ventricular system and basilar cistern s are patent. Moderate to advanced small vessel changes with moderate parenchymal volume loss. Normal posterior fossa. Normal vascular flow voids at the skull base. No extra-axial fluid collections. No evidence of mass or mass effect. Mild mucosal thickening in the paranasal sinuses. Partial opacificat ion RIGHT mastoid air cells. Normal posterior nasopharynx. Normal parapharyngeal fat. Encephalomalacia with gliosis in the RIGHT parasagittal occipital lobe compatible with prior infarct. Normal optic chiasm and pituitary infundibulum. Moderate symmetric atrophy temporal lobes hippocampa l formations. Tiny punctate focus of hemosiderin in the LEFT frontal white matter. IMPRESSION: 1. No evidence of restricted diffusion to suggest acute ischemia. 2. Moderate to advanced small vessel changes with moderate parenchymal volume loss. 3. 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 4. Partial opacification RIGHT mastoid air cells. Normal posterior nasopharynx. 5. Moderate symmetric atrophy temporal lobes and hippocampal formations. 6. Tiny punctate focus of hemosiderin in the LEFT frontal lobe. 7. No other suspicious findings.
== END 2022-11-29 10:06 | disposition home or self-care (01) ==
PROVIDERS: PCP Nurse Practitioner; Visit Provider Specialist
DX: R29.90 Unspecified symptoms and signs involving the nervous system (principal); R26.9 Unspecified abnormalities of gait and mobility; Z86.73 Personal history of transient ischemic attack (TIA), and cerebral infarction without residual deficits; M48.02 Spinal stenosis, cervical region; M47.812 Spondylosis without myelopathy or radiculopathy, cervical region
CPT/HCPCS: 36415; 70551; 72141; 82607; 82728; 85025; 85651

== ENCOUNTER → 2022-12-04 14:51 | Outpatient (BNVA) | payer MEDICARE, OTHER, SELFPAY | PROVIDERS: PCP Nurse Practitioner; Visit Provider Surgery | DX: K92.1 Melena (principal); K59.00 Constipation, unspecified | CPT/HCPCS: 99203 ==

== ENCOUNTER → 2022-12-07 14:16 | Outpatient (BNVA) | payer MEDICARE, OTHER, SELFPAY | PROVIDERS: PCP Nurse Practitioner; Visit Provider Specialist | DX: R29.90 Unspecified symptoms and signs involving the nervous system (principal); R26.9 Unspecified abnormalities of gait and mobility; G30.9 Alzheimer's disease, unspecified; F02.80 Dementia in other diseases classified elsewhere, unspecified severity, without behavioral disturbance, psychotic disturbance, mood disturbance, and anxiety; I48.20 Chronic atrial fibrillation, unspecified | CPT/HCPCS: 99214 ==

== ENCOUNTER → 2023-01-02 08:49 | Day surgery (SDC) | payer MEDICARE, OTHER, SELFPAY ==
[2023-01-01 09:31] VITALS: BMI 27.8
[2023-01-02 09:34] VITALS: BP 139/74; PULSE 87; RESP 16; TEMP 36.4; O2SAT 93; BMI 27.8
[2023-01-02] MEDS: sodium chloride 0.9% 1,000 ML 30 ML IV (09:49)
--- NOTE | 2023-01-02 10:00 | W.PM.OPSUD ---
Surgery/Procedure H&P Update DATE OF PROCEDURE: January 02, 2023 DATE H&P PERFORMED: 12/04/22 H&P UPDATE INFORMATION: I have reviewed H&P completed within last 30 days, I have examined patient prior to procedure and No changes to prior documentation PLANNED PROCEDURE: Operation Date: 01/02/23 10:15 Proposed Procedures p EGD 11795,K92.1(Not Applicable) - Jayesh Pereira DO
--- NOTE | 2023-01-02 10:12 | ANES.PREANE2 ---
Pre-Anesthetic Assessment Height/Weight: Height 1.83 m Weight 92.986 kg Temp Pulse Resp BP Pulse Ox O2 Del Method 97.5 F L 87 16 139/74 93 Room Air 01/02/23 09:34 01/02/23 09:34 01/02/23 09:34 01/02/23 09:34 01/02/23 09:34 01/02/23 09:34 Preop Diagnosis: Melena Operation Date: 01/02/23 10:15 Proposed Procedures p EGD [id number],K92.1(Not Applicable) - Jayesh Pereira DO Familial anesthetic complications: none Last intake: Intake Last Liquid Date 01/01/23 Last Liquid Time 22:00 Last Solid Date 01/01/23 Last Solid Time 19:00 Social No alcohol and No tobacco Exam alert, oriented x 3, clear to auscultation bilaterally and regular rate & rhythm Airway Submandibular: within normal limits Cervical ROM: within normal limits Mallampati: Class II Dentition: chipped and partials (removed) Pulmonary Chronic Obstructive Pulmonary Disease CV/HEM Atrial Fibrillation CONCLUSIONS ?Normal left ventricular size and systolic function, EF 70 %. No ?regional wall motion abnormalities. ?Moderately increased right atrial size. ?Mildly increased left atrial size. ?Tnowzfee-no-sofvxn tricuspid valve regurgitation.? Estimated ?pulmonary artery peak systolic pressure 29 mmHg. ?Thickened aortic valve. Trace aortic valve regurgitation. ?Moderate mitral annular calcification. Mild-moderate mitral ?valve regurgitation. ?There is no pericardial effusion. ?There are no intracardiac masses. ?No similar previous studies are available for comparison Mitral Valve Ring 12/26/15 None reported Hepatic None reported GI Gastroesophageal Reflux Disease Melena Metabolic None reported Musc/skel Weakness (prn cane use) Neuropsych Dementia and Transient Ischemic Attack (2021) Anesthetic Plan ASA status: 3 Anesthesia: MAC Medications/Allergies Home Medications Medication Instructions Recorded Confirmed Last Taken Type aspirin 81 mg tablet,delayed 81 mg PO DAILY 04/05/20 01/01/23 12/31/22 History release calcium acetate(phosphat bind) 667 667 mg PO DAILY #30 tabs 01/23/21 01/01/23 12/31/22 Rx mg tablet montelukast 10 mg tablet 10 mg PO DAILY 90 days #90 tabs 01/23/21 01/01/23 Unknown Rx (Singulair) pantoprazole 40 mg tablet,delayed 40 mg PO DAILY #14 tabs 03/06/22 01/01/23 12/31/22 Rx release ferrous sulfate 325 mg (65 mg 325 mg PO DAILY #90 tabs 07/23/22 01/01/23 Unknown Rx iron) tablet rivaroxaban 20 mg tablet (Xarelto) 20 mg PO DAILY #90 tabs 11/01/22 01/01/23 12/31/22 Rx linaclotide 72 mcg capsule 72 mcg PO DAILY #90 caps 12/07/22 01/01/23 12/31/22 Rx (Linzess) levocetirizine 5 mg tablet 5 mg PO DAILY 01/01/23 01/01/23 Unknown History Allergies Allergy/AdvReac Type Severity Reaction Status Date / Time No Known Allergies Allergy Verified 01/01/23 09:20 Current Medications Generic Name Dose Route Start Last Admin Trade Name Freq PRN Reason Stop Dose Admin Sodium Chloride 1,000 mls @ 30 mls/hr 01/02/23 09:15 01/02/23 09:49 Sodium Chloride 0.9% IV 01/03/23 09:14 30 mls/hr .Q24H CASSIE Administration PFSH Anesthesia Medical History Anemia Anticoagulated Cervical strain Chronic a-fib COPD (chronic obstructive pulmonary disease) GERD (gastroesophageal reflux disease) H/O iron deficiency anemia History of nonmelanoma skin cancer History of prostate cancer Lower respiratory infection Lung nodule Mixed hyperlipidemia Primary osteoarthritis, right shoulder Skin cancer of scalp Upper respiratory infection Vitamin B 12 deficiency Vitamin D deficiency Surgical History History of open heart surgery Hx of colonoscopy Social History Smoking and tobacco status: never smoked Second hand smoke exposure: No Smoking risk assessment/counseling performed?: No Alcohol intake: never Desire information about alcohol rehabilitation?: No Counseling given: No Substance/Drug Use: never Desire information about substance/drug rehabilitation?: No Counseling given: No Data Anesthesia Cardiac Studies: Echocardiogram 11/02/22
--- NOTE | 2023-01-02 13:42 | ANE.PACU2 ---
Inpatient post-anesthesia follow up: Airway intact: Yes Vital signs: Temperature 97.5 F Pulse Rate 87 Respiratory Rate 16 Blood Pressure 139/74 Pulse Oximetry 93 Oxygen Delivery Me thod Room Air Oxygen Flow Rate Fraction of Inspir ed Oxygen Hydration adequate: Yes Nausea and vomiting: No Pain level: 1 Mental status: Baseline
== END | disposition home or self-care (01) ==
PROVIDERS: Family Provider Specialist; PCP Nurse Practitioner; Visit Provider Surgery
PROC: 0DJ08ZZ Inspection of Upper Intestinal Tract, Via Natural or Artificial Opening Endoscopic (ICD-10-PCS; CPT 43235; principal; 2023-01-02 10:15)
DX: K92.1 Melena (principal); Z53.8 Procedure and treatment not carried out for other reasons
CPT/HCPCS: J2001; J2704; J7030

== ENCOUNTER → 2023-01-07 15:17 | Outpatient (BNVA) | payer MEDICARE, OTHER, SELFPAY | PROVIDERS: Family Provider Specialist; PCP Nurse Practitioner; Visit Provider Nurse Practitioner | DX: E55.9 Vitamin D deficiency, unspecified (principal); D64.9 Anemia, unspecified; I48.20 Chronic atrial fibrillation, unspecified | CPT/HCPCS: 80053; 82306; 82746; 84443; 85025 ==

== ENCOUNTER 2023-01-09 14:07 | Emergency (ER) | payer MEDICARE, OTHER, SELFPAY ==
[2023-01-09] VITALS (66 sets, daily range): BP systolic 112–169; BP diastolic 69–116; PULSE 64–113; RESP 12–29; TEMP 36.5–37.1; O2SAT 79–100
[2023-01-09 15:05] LABS: Basophils # 0.1 10^3/uL (0.0-0.1); Basophils % 0.6 %; Eosinophils # 0.2 10^3/uL (0.0-0.8); Eosinophils % 2.7 %; Lymphocytes # 1.8 10^3/uL (0.8-4.8); Lymphocytes % 22.3 %; Mean Corpuscular HGB Conc 29.6 g/dL (30-55); Mean Corpuscular Hemoglobin 23.8 pg (27-33); Mean Corpuscular Volume 80.5 fl (82-101); Monocytes # 0.7 10^3/uL (0.2-0.9); Monocytes % 8.3 %; Neutrophils # 5.18 10^3/uL (1.8-7.7); Neutrophils % 65.8 %; Nucleated Red Blood Cells % 0 %; Platelet Count 441 10^3/cmm (157-399); Red Blood Count 2.98 10^6/uL (3.85-5.65); Red Cell Distribution Width 17.5 % (12.1-15.1); White Blood Count 7.86 10^3/uL (3.29-11.43)
--- NOTE | 2023-01-09 15:13 | ED_ITS ---
HPI - Recheck/Abnormal Lab/Rx General: Chief Complaint: Recheck/Abnormal Lab/Rx Stated Complaint: phys sent, blood infusion, Time Seen by Provider: 01/09/23 14:37 PFSH ED PFSH: Medical History Anemia Anticoagulated Cervical strain Chronic a-fib COPD (chronic obstructive pulmonary disease) GERD (gastroesophageal reflux disease) H/O iron deficiency anemia History of nonmelanoma skin cancer History of prostate cancer Lower respiratory infection Lung nodule Mixed hyperlipidemia Primary osteoarthritis, right shoulder Skin cancer of scalp Upper respiratory infection Vitamin B 12 deficiency Vitamin D deficiency Surgical History History of open heart surgery Hx of colonoscopy Social History Smoking and tobacco/nicotine status: never used tobacco/nicotine Second hand smoke exposure: No Alcohol intake: never Substance/Drug Use: never Course Vital Signs: Vital signs: Vital Signs Pulse Rate 80 01/09/23 14:21 Respiratory Rate 18 01/09/23 14:21 Blood Pressure 136/82 01/09/23 14:21 Pulse Oximetry 99 01/09/23 14:21 Oxygen Delivery Me thod Room Air 01/09/23 14:21 MDM - Recheck/Abnormal Lab/Rx Lab Data 01/09/23 14:52 01/09/23 14:52 Laboratory Results WBC 7.86 10^3/uL (3.29-11.43) 01/09/23 14:52 RBC 2.98 10^6/uL (3.85-5.65) L 01/09/23 14:52 Hgb 7.10 g/dL (11.27-16.99) L 01/09/23 14:52 Hct 24.0 % (37-53) L 01/09/23 14:52 MCV 80.5 fl (82-101) L 01/09/23 14:52 MCH 23.8 pg (27-33) L 01/09/23 14:52 MCHC 29.6 g/dL (30-55) L 01/09/23 14:52 RDW 17.5 % (12.1-15.1) H 01/09/23 14:52 Plt Count 441 10^3/cmm (157-399) H 01/09/23 14:52 MPV 10.0 fL (7.4-10.4) 01/09/23 14:52 Neut % (Auto) 65.8 % 01/09/23 14:52 Lymph % (Auto) 22.3 % 01/09/23 14:52 Carbon % (Auto) 8.3 % 01/09/23 14:52 Eos % (Auto) 2.7 % 01/09/23 14:52 Baso % (Auto) 0.6 % 01/09/23 14:52 Neut # (Auto) 5.18 10^3/uL (1.8-7.7) 01/09/23 14:52 Lymph # (Auto) 1.8 10^3/uL (0.8-4.8) 01/09/23 14:52 Carbon # (Auto) 0.7 10^3/uL (0.2-0.9) 01/09/23 14:52 Eos # (Auto) 0.2 10^3/uL (0.0-0.8) 01/09/23 14:52 Baso # (Auto) 0.1 10^3/uL (0.0-0.1) 01/09/23 14:52 Nucleated RBC % (auto) 0 % 01/09/23 14:52 Nucleated RBCs # 0.0 /100WBC 01/09/23 14:52 Discharge Plan Discharge Condition: Stable Prescriptions: No Action aspirin 81 mg tablet,delayed release (DR/EC) 81 mg PO DAILY lidocaine HCl [Xylocaine] 10 mg/mL (1 %) solution 1 ml IM ONCE Qty: 1 0RF Xarelto 20 mg tablet 20 mg PO DAILY Qty: 90 3RF Rx Instructions: must administer with evening meal 340B Linzess 72 mcg capsule 72 mcg PO DAILY Qty: 90 3RF Rx Instructions: 340 B calcium acetate(phosphat bind) 667 mg tablet 667 mg PO DAILY Qty: 30 5RF montelukast [Singulair] 10 mg tablet 10 mg PO DAILY 90 Days Qty: 90 1RF pantoprazole 40 mg tablet,delayed release (DR/EC) 40 mg PO DAILY Qty: 14 0RF Rx Instructions: emergency supply while he waits on mail order. see if insurance will approve. ferrous sulfate 325 mg (65 mg iron) tablet 325 mg PO DAILY Qty: 90 1RF levocetirizine 5 mg tablet 5 mg PO DAILY Rx Instructions: TAKE 1 TABLET BY MOUTH DAILY NEEDED FOR ALLERGY SYMPTOMS Referrals: Marcela Qiu FNP [Primary Care Provider] - Coding Level of Care Code ED Mechanical Engineering Technologist for Tracy Walls
--- NOTE | 2023-01-09 15:13 | W.ED.RECABL ---
HPI - Recheck/Abnormal Lab/Rx General: Chief Complaint: Recheck/Abnormal Lab/Rx Stated Complaint: phys sent, blood infusion, Time Seen by Provider: 01/09/23 14:37 History of Present Illness: 87-year-old male presents for recheck of his hemoglobin. Patient reports that his primary care provider sent him in for recheck of his hemoglobin and possible blood transfusion. Patient had his labs checked on 01/07/2023 and his hemoglobin was found to be 7.4. Patient reports that he has had issues in the past with low hemoglobin and has had to have a blood transfusion. He is currently on Xarelto 20 mg daily. He denies any black tarry stools, bloody stools or hematuria. Patient has had a normal colonoscopy in the last couple years per chart review. He was scheduled to have an EGD. He only complains of weakness but has been going on for couple months. No other acute complaints. Review of Systems Const: Reports: change in appetite, fatigue and malaise Eyes: Reports: change in vision and blurry vision ENMT: Denies: throat pain Card: Denies: chest pain or palpitations Resp: Denies: dyspnea or chest congestion GI: Denies: abdominal pain, nausea or vomiting : Denies: dysuria or urinary frequency Skin/Breast: Denies: rash or pruritus Neuro: Reports: other (Generalized weakness) PFS ED PFSH: Medical History Anemia Anticoagulated Cervical strain Chronic a-fib COPD (chronic obstructive pulmonary disease) GERD (gastroesophageal reflux disease) H/O iron deficiency anemia History of nonmelanoma skin cancer History of prostate cancer Lower respiratory infection Lung nodule Mixed hyperlipidemia Primary osteoarthritis, right shoulder Skin cancer of scalp Upper respiratory infection Vitamin B 12 deficiency Vitamin D deficiency Surgical History History of open heart surgery Hx of colonoscopy Social History Smoking and tobacco/nicotine status: never used tobacco/nicotine Second hand smoke exposure: No Alcohol intake: never Substance/Drug Use: never Physical Exam Const: COMMON NORMALS: no acute distress, patient oriented x3 and alert GENERAL APPEARANCE: cooperative and well kempt Eye: COMMON NORMALS: Equal, round and reactive pupils present and EOMs intact bilaterally PUPIL: Yes Equal, round and reactive pupils present Resp: COMMON NORMALS: normal respiratory effort, No use of accessory muscles and clear to auscultation bilaterally EFFORT & INSPECTION: Yes able to speak in complete sentences AUSCULTATION: clear to auscultation bilaterally Cardio: COMMON NORMALS: regular rate and regular rhythm RATE: regular rate RHYTHM: regular rhythm GI: COMMON NORMALS: Soft to palpation and non-tender PALPATION: Yes Soft to palpation Neuro: COMMON NORMALS: patient oriented x3, CN's II-XII intact bilaterally and moves all extremities SENSORIUM/ORIENTATION: Yes alert Psych: COMMON NORMALS: mental status grossly normal, cooperative and normal affect APPEARANCE: Yes well kempt Skin: GENERAL SKIN EXAM: pallor Course Vital Signs: Vital signs: Vital Signs Temperature 98.5 F 01/09/23 21:02 Pulse Rate 73 01/09/23 21:14 Respiratory Rate 18 01/09/23 21:14 Blood Pressure 154/78 01/09/23 21:14 Pulse Oximetry 98 01/09/23 21:14 Oxygen Delivery Me thod Room Air 01/09/23 16:30 MDM - Recheck/Abnormal Lab/Rx Medical Decision Making Patient's diagnostic studies were ordered reviewed and interpreted by me. Patient hemoglobin was 7.1 which is a mild decrease from his previous. Patient will be transfused 2 units packed red blood cells. Had a long discussion with him regarding need to follow-up with his primary care provider for further outpatient evaluation. Patient has had to have blood transfusions in the past. He is currently on a blood thinner which is likely contributing to his hemoglobin drop. Patient stable and discharged. Medical Records I reviewed the patient's medical records. Lab Data I reviewed the patient's lab results. 01/09/23 14:52 01/09/23 14:52 Laboratory Results WBC 7.86 10^3/uL (3.29-11.43) 01/09/23 14:52 RBC 2.98 10^6/uL (3.85-5.65) L 01/09/23 14:52 Hgb 7.10 g/dL (11.27-16.99) L 01/09/23 14:52 Hct 24.0 % (37-53) L 01/09/23 14:52 MCV 80.5 fl (82-101) L 01/09/23 14:52 MCH 23.8 pg (27-33) L 01/09/23 14:52 MCHC 29.6 g/dL (30-55) L 01/09/23 14:52 RDW 17.5 % (12.1-15.1) H 01/09/23 14:52 Plt Count 441 10^3/cmm (157-399) H 01/09/23 14:52 MPV 10.0 fL (7.4-10.4) 01/09/23 14:52 Neut % (Auto) 65.8 % 01/09/23 14:52 Lymph % (Auto) 22.3 % 01/09/23 14:52 Robertson % (Auto) 8.3 % 01/09/23 14:52 Eos % (Auto) 2.7 % 01/09/23 14:52 Baso % (Auto) 0.6 % 01/09/23 14:52 Neut # (Auto) 5.18 10^3/uL (1.8-7.7) 01/09/23 14:52 Lymph # (Auto) 1.8 10^3/uL (0.8-4.8) 01/09/23 14:52 Robertson # (Auto) 0.7 10^3/uL (0.2-0.9) 01/09/23 14:52 Eos # (Auto) 0.2 10^3/uL (0.0-0.8) 01/09/23 14:52 Baso # (Auto) 0.1 10^3/uL (0.0-0.1) 01/09/23 14:52 Nucleated RBC % (auto) 0 % 01/09/23 14:52 Nucleated RBCs # 0.0 /100WBC 01/09/23 14:52 Sodium 133 mmol/L (136-145) L 01/09/23 14:52 Potassium 4.1 mmol/L (3.5-5.1) 01/09/23 14:52 Chloride 100 mmol/L (98-107) 01/09/23 14:52 Carbon Dioxide 23 mmol/L (22-29) 01/09/23 14:52 Anion Gap 14.1 (5-19) 01/09/23 14:52 BUN 12 mg/dL (8-23) 01/09/23 14:52 Creatinine 1.0 mg/dL (0.7-1.2) 01/09/23 14:52 GFR Calculation Not Reportable 01/09/23 14:52 Glucose 121 mg/dL (65-115) H 01/09/23 14:52 Calculated Osmolality 277 mOsm/kg (285-295) L 01/09/23 14:52 Calcium 8.8 mg/dL (8.5-10.5) 01/09/23 14:52 Magnesium 2.2 mg/dL (1.7-2.3) 01/09/23 14:52 Total Bilirubin 0.2 mg/dL (0.15-1.2) 01/09/23 14:52 AST 13 U/L (0-40) 01/09/23 14:52 ALT < 5 U/L (0-41) 01/09/23 14:52 Alkaline Phosphatase 79 U/L (40-130) 01/09/23 14:52 Total Protein 6.9 g/dL (6.6-8.7) 01/09/23 14:52 Albumin 4.0 g/dL (3.5-5.2) 01/09/23 14:52 Globulin 2.9 g/dL (1.3-4.6) 01/09/23 14:52 Blood Type O Positive 01/09/23 14:52 Rho(D) Type Positive 01/09/23 14:52 Antibody Screen Negative 01/09/23 14:52 Crossmatch See Detail 01/09/23 14:52 No radiology studies performed this visit Discharge Plan Discharge Patient Disposition: Home Clinical Impression: Anticoagulated, Anemia Condition: Stable Prescriptions: No Action aspirin 81 mg tablet,delayed release (DR/EC) 81 mg PO QAM levocetirizine 5 mg tablet 5 mg PO QAM PRN (Reason: Allergic Symptoms) Rx Instructions: TAKE 1 TABLET BY MOUTH DAILY NEEDED FOR ALLERGY SYMPTOMS calcium acetate(phosphat bind) 667 mg tablet 667 mg PO DAILY PRN (Reason: unknown) pantoprazole 40 mg tablet,delayed release (DR/EC) 40 mg PO QAM ferrous sulfate 325 mg (65 mg iron) tablet 325 mg PO QAM Singulair 10 mg tablet 10 mg PO QAM PRN (Reason: Allergic Symptoms) Xarelto 20 mg tablet 20 mg PO QPM Rx Instructions: must administer with evening meal 340B Linzess 72 mcg capsule 72 mcg PO QAM Rx Instructions: 340 B Centrum Men 8 mg iron- 200 mcg-600 mcg Tablet 1 tab PO QAM Discharge Orders: Discharge ED (Routine); Ordered 01/09/23 Ordered By: Tee Pandey Referrals: Marcela Qiu FNP [Primary Care Provider] - Discharge Diet: Usual diet Discharge Activity: Resume usual activity Patient Instructions: Anemia (ED), Blood Transfusion (DC), Opioid Safety, Pain Management Activity Restrictions/Additional Instructions: Please follow-up with your primary care provider in the next couple days for further evaluation of your anemia and a recheck of your hemoglobin. Coding Level of Care Code ED Airfreight Operations Agent for Tracy Walls
[2023-01-09 15:33] LABS: Alanine Aminotransferase < 5 U/L (0-41); Alkaline Phosphatase 79 U/L (40-130); Anion Gap 14.1 (5-19); Aspartate Amino Transferase 13 U/L (0-40); Blood Urea Nitrogen 12 mg/dL (8-23); Calcium 8.8 mg/dL (8.5-10.5); Carbon Dioxide 23 mmol/L (22-29); Chloride 100 mmol/L (98-107); Globulin 2.9 g/dL (1.3-4.6); Glucose 121 mg/dL (65-115); Magnesium 2.2 mg/dL (1.7-2.3); Osmolality Calculated 277 mOsm/kg (285-295); Potassium 4.1 mmol/L (3.5-5.1); Sodium 133 mmol/L (136-145); Total Bilirubin 0.2 mg/dL (0.15-1.2); Total Protein 6.9 g/dL (6.6-8.7)
== END 2023-01-09 21:16 | disposition home or self-care (01) ==
PROVIDERS: Emergency Provider Student in an Organized Health Care Education/Training Program; PCP Nurse Practitioner
DX: D64.9 Anemia, unspecified (principal); D68.318 Other hemorrhagic disorder due to intrinsic circulating anticoagulants, antibodies, or inhibitors; Z79.01 Long term (current) use of anticoagulants; Z79.82 Long term (current) use of aspirin; J44.9 Chronic obstructive pulmonary disease, unspecified; Z85.46 Personal history of malignant neoplasm of prostate; E78.2 Mixed hyperlipidemia
CPT/HCPCS: 36415; 36430; 80053; 83735; 85025; 86850; 86900; 86920; 99284; P9016

== ENCOUNTER → 2023-01-10 13:52 | Outpatient (BNVA) | payer MEDICARE, OTHER, SELFPAY | PROVIDERS: PCP Nurse Practitioner; Visit Provider Dermatology | DX: D48.9 Neoplasm of uncertain behavior, unspecified (principal); L57.0 Actinic keratosis; L81.4 Other melanin hyperpigmentation; L82.1 Other seborrheic keratosis; D18.01 Hemangioma of skin and subcutaneous tissue; Z85.828 Personal history of other malignant neoplasm of skin | CPT/HCPCS: 17000; 99213 ==

== ENCOUNTER → 2023-01-21 13:33 | Outpatient (BNVA) | payer MEDICARE, OTHER, SELFPAY | PROVIDERS: PCP Nurse Practitioner; Visit Provider Nurse Practitioner Family | DX: R68.89 Other general symptoms and signs (principal); J22 Unspecified acute lower respiratory infection; U07.1 COVID-19; J06.9 Acute upper respiratory infection, unspecified; D64.9 Anemia, unspecified; I48.20 Chronic atrial fibrillation, unspecified | CPT/HCPCS: 80053; 82728; 83550; 85007; 85027; 87400; 87426 ==

== ENCOUNTER 2023-01-22 11:29 | Inpatient (IN) | payer MEDICARE, OTHER, SELFPAY ==
[2023-01-22] VITALS (7 sets, daily range): BP systolic 132–142; BP diastolic 66–86; PULSE 72–91; RESP 17–20; TEMP 35.8–36.9; O2SAT 97–100
--- NOTE | 2023-01-22 11:43 | XR_ITS ---
WS: [id number] Exam: XR chest 1V portable [id number] Date/Time of Exam: 01/22/2023 11:54 AM Reason For Exam: covid Comparison 02/22/2020. The lungs are hyperinflated and clear. Mild plaque atelectasis in the RIGHT base. Heart size is ap l. The mediastinum is normal in contour. Signs of previous cardiac valve replacement. No pleural effu sions. Moderate DJD of both shoulders. IMPRESSION: 1. Pulmonary hyperinflation which may indicate obstructive lung disease. No acute finding.
--- NOTE | 2023-01-22 11:43 | W.ED.GIBLEED ---
HPI - GI Bleed General: Chief complaint: GI Bleed Stated complaint: rectal bleeding Time Seen by Provider: 01/22/23 11:30 Source: patient Mode of arrival: ambulatory Limitations: no limitations History of Present Illness: 87-year-old male history of A-fib along with chronic anemia states he had to be transfused 2 units a couple weeks ago he states that last night he started having dark stools and believes there is blood in it had some general malaise but states he is not having any severe weakness his blood pressures been normal he did see his PCP yesterday because he states he has been having some fatigue and just not feeling well did test positive for COVID denies any abdominal pain denies any vomiting blood. Associated symptoms: Denies abdominal pain, chills, fever(s), headache(s), nausea, rash or vomiting Review of Systems Const: Denies: fever(s), chills, body aches or change in appetite Eyes: Denies: blurry vision or eye discomfort ENMT: Denies: throat pain or dental pain Card: Denies: chest pain Resp: Denies: dyspnea GI: Reports: melena; Denies: abdominal pain, nausea, vomiting or diarrhea : Denies: dysuria Musc: Denies: neck pain or back pain Skin/Breast: Denies: rash Neuro: Denies: headache(s) PFSH ED PFSH: Medical History Anemia Anticoagulated Cervical strain Chronic a-fib COPD (chronic obstructive pulmonary disease) COVID-19 GERD (gastroesophageal reflux disease) H/O iron deficiency anemia History of nonmelanoma skin cancer History of prostate cancer Lower respiratory infection Lower respiratory infection Lung nodule Mixed hyperlipidemia Primary osteoarthritis, right shoulder Skin cancer of scalp Upper respiratory infection Vitamin B 12 deficiency Vitamin D deficiency Surgical History History of open heart surgery Hx of colonoscopy Social History Smoking and tobacco/nicotine status: never used tobacco/nicotine Second hand smoke exposure: No Alcohol intake: never Substance/Drug Use: never Physical Exam Const: COMMON NORMALS: patient oriented x3 and healthy appearing HENMT: COMMON NORMALS: normocephalic and atraumatic HEAD & SCALP: normocephalic and atraumatic Eye: COMMON NORMALS: Equal, round and reactive pupils present and EOMs intact bilaterally PUPIL: Yes Equal, round and reactive pupils present Neck/C-Spine: COMMON NORMALS: full ROM and supple Chest: COMMONS NORMALS: normal inspection of the chest Resp: COMMON NORMALS: normal respiratory effort Cardio: COMMON NORMALS: regular rate, regular rhythm and No murmurs present (Cardio) RATE: regular rate RHYTHM: regular rhythm GI: COMMON NORMALS: Normal to inspection, nondistended, normoactive bowel sounds present, Soft to palpation, non-tender and no masses PALPATION: Yes Soft to palpation OTHER: dark stool that is hemoccult positive Extremity: COMMON NORMALS: normal to inspection and full ROM Neuro: COMMON NORMALS: patient oriented x3, moves all extremities and no focal motor deficits Psych: COMMON NORMALS: mental status grossly normal, Normal thought process present and cooperative THOUGHT PROCESS: Normal thought process present Skin: COMMON NORMALS: no rashes or lesions noted and no wounds GENERAL SKIN EXAM: no rashes or lesions noted Course Vital Signs: Vital signs: Vital Signs Temperature 97.8 F 01/22/23 11:44 Pulse Rate 91 01/22/23 11:39 Respiratory Rate 18 01/22/23 11:39 Blood Pressure 140/86 01/22/23 11:44 Pulse Oximetry 98 01/22/23 11:39 Oxygen Delivery Me thod Room Air 01/22/23 11:39 MDM - GI Bleed Medical Decision Making Patient presents here with upper GI bleed he is also COVID-positive his blood pressure here has been normal hemoglobin is 7.8 he does not require transfusion at this point I did speak to the hospitalist along with surgeon and will admit at this time. Medical Records I reviewed the patient's medical records. Lab Data I reviewed the patient's lab results. 01/22/23 11:42 01/22/23 11:42 Laboratory Results WBC 7.68 10^3/uL (3.29-11.43) 01/22/23 11:42 RBC 3.12 10^6/uL (3.85-5.65) L 01/22/23 11:42 Hgb 7.80 g/dL (11.27-16.99) L 01/22/23 11:42 Hct 25.3 % (37-53) L 01/22/23 11:42 MCV 81.1 fl (82-101) L 01/22/23 11:42 MCH 25.0 pg (27-33) L 01/22/23 11:42 MCHC 30.8 g/dL (30-55) 01/22/23 11:42 RDW 18.7 % (12.1-15.1) H 01/22/23 11:42 Plt Count 305 10^3/cmm (157-399) 01/22/23 11:42 MPV 10.6 fL (7.4-10.4) H 01/22/23 11:42 Neut % (Auto) 60.3 % 01/22/23 11:42 Lymph % (Auto) 23.2 % 01/22/23 11:42 Dixon % (Auto) 16.1 % 01/22/23 11:42 Eos % (Auto) 0.0 % 01/22/23 11:42 Baso % (Auto) 0.1 % 01/22/23 11:42 Neut # (Auto) 4.63 10^3/uL (1.8-7.7) 01/22/23 11:42 Lymph # (Auto) 1.8 10^3/uL (0.8-4.8) 01/22/23 11:42 Dixon # (Auto) 1.2 10^3/uL (0.2-0.9) H 01/22/23 11:42 Eos # (Auto) 0.0 10^3/uL (0.0-0.8) 01/22/23 11:42 Baso # (Auto) 0.0 10^3/uL (0.0-0.1) 01/22/23 11:42 Nucleated RBC % (auto) 0 % 01/22/23 11:42 Nucleated RBCs # 0.0 /100WBC 01/22/23 11:42 PT 21.60 SECONDS (12.1-14.9) H 01/22/23 11:42 INR 1.81 (0.8-1.2) H 01/22/23 11:42 Sodium 126 mmol/L (136-145) L 01/22/23 11:42 Potassium 3.9 mmol/L (3.5-5.1) 01/22/23 11:42 Chloride 93 mmol/L (98-107) L 01/22/23 11:42 Carbon Dioxide 23 mmol/L (22-29) 01/22/23 11:42 Anion Gap 13.9 (5-19) 01/22/23 11:42 BUN 20 mg/dL (8-23) 01/22/23 11:42 Creatinine 1.0 mg/dL (0.7-1.2) 01/22/23 11:42 GFR Calculation Not Reportable 01/22/23 11:42 Glucose 120 mg/dL (65-115) H 01/22/23 11:42 Calculated Osmolality 266 mOsm/kg (285-295) L 01/22/23 11:42 Calcium 8.6 mg/dL (8.5-10.5) 01/22/23 11:42 Total Bilirubin 0.2 mg/dL (0.15-1.2) 01/22/23 11:42 AST 19 U/L (0-40) 01/22/23 11:42 ALT 8 U/L (0-41) 01/22/23 11:42 Alkaline Phosphatase 65 U/L (40-130) 01/22/23 11:42 Total Protein 6.5 g/dL (6.6-8.7) L 01/22/23 11:42 Albumin 3.9 g/dL (3.5-5.2) 01/22/23 11:42 Globulin 2.6 g/dL (1.3-4.6) 01/22/23 11:42 All radiology interpretation(s) finalized by discharge Discharge Plan Discharge Patient Disposition: Admitted As Inpatient Clinical Impression: Anemia, Acute upper GI bleed, COVID-19 Condition: Stable Prescriptions: No Action aspirin 81 mg tablet,delayed release (DR/EC) 81 mg PO QAM azithromycin 250 mg tablet See Rx Instructions PO .COMPLEX Qty: 6 0RF Rx Instructions: take 500 mg today (day 1), then 250 mg for 4 days (days 2-5) PO dexamethasone 6 mg tablet 6 mg PO DAILY 7 Days Qty: 7 0RF levocetirizine 5 mg tablet 5 mg PO QAM PRN (Reason: Allergic Symptoms) Rx Instructions: TAKE 1 TABLET BY MOUTH DAILY NEEDED FOR ALLERGY SYMPTOMS calcium acetate(phosphat bind) 667 mg tablet 667 mg PO DAILY PRN (Reason: unknown) pantoprazole 40 mg tablet,delayed release (DR/EC) 40 mg PO QAM ferrous sulfate 325 mg (65 mg iron) tablet 325 mg PO QAM Singulair 10 mg tablet 10 mg PO QAM PRN (Reason: Allergic Symptoms) Xarelto 20 mg tablet 20 mg PO QPM Rx Instructions: must administer with evening meal 340B Linzess 72 mcg capsule 72 mcg PO QAM Rx Instructions: 340 B Centrum Men 8 mg iron- 200 mcg-600 mcg Tablet 1 tab PO QAM Referrals: Marcela Qiu FNP [Primary Care Provider] - Coding Level of Care Code ED Community Outreach Coordinator for Tracy Walls
[2023-01-22 12:03] LABS: Basophils % 0.1 %; Hematocrit 25.3 % (37-53); Lymphocytes # 1.8 10^3/uL (0.8-4.8); Lymphocytes % 23.2 %; Mean Corpuscular HGB Conc 30.8 g/dL (30-55); Mean Corpuscular Volume 81.1 fl (82-101); Mean Platelet Volume 10.6 fL (7.4-10.4); Monocytes # 1.2 10^3/uL (0.2-0.9); Monocytes % 16.1 %; Neutrophils # 4.63 10^3/uL (1.8-7.7); Neutrophils % 60.3 %; Nucleated Red Blood Cells % 0 %; Platelet Count 305 10^3/cmm (157-399); Red Blood Count 3.12 10^6/uL (3.85-5.65); Red Cell Distribution Width 18.7 % (12.1-15.1); White Blood Count 7.68 10^3/uL (3.29-11.43)
[2023-01-22] MEDS: pantoprazole 40 mg SDV 80 MG IVP (12:12)
[2023-01-22 12:15] LABS: INR 1.81 (0.8-1.2)
[2023-01-22 12:19] LABS: Alanine Aminotransferase 8 U/L (0-41); Albumin Level 3.9 g/dL (3.5-5.2); Alkaline Phosphatase 65 U/L (40-130); Anion Gap 13.9 (5-19); Aspartate Amino Transferase 19 U/L (0-40); Blood Urea Nitrogen 20 mg/dL (8-23); Calcium 8.6 mg/dL (8.5-10.5); Carbon Dioxide 23 mmol/L (22-29); Chloride 93 mmol/L (98-107); Globulin 2.6 g/dL (1.3-4.6); Glucose 120 mg/dL (65-115); Osmolality Calculated 266 mOsm/kg (285-295); Potassium 3.9 mmol/L (3.5-5.1); Sodium 126 mmol/L (136-145); Total Bilirubin 0.2 mg/dL (0.15-1.2); Total Protein 6.5 g/dL (6.6-8.7)
[2023-01-22] MEDS: pantoprazole 40 MG in sodium chloride 0.9% (plus) 100 ML 20 MG IV (12:33)
[2023-01-22 14:36] LABS: Hematocrit 23.5 % (37-53)
--- NOTE | 2023-01-22 14:36 | P.HP_ITS ---
Providers/Chief Complaint Admitting Physician: Antwon Shaikh MD Primary Care Provider: Marcela Qiu APN Chief Complaint: rectal bleeding History of Present Illness Damion Rojas is a 87 year old male with a past medical history of anemia, chronic atrial fibrillation on Xarelto, history of iron deficiency anemia, who presents to [facility] due to fatigue, malaise,. Patient tells me that he has had fatigue and malaise, he receives transfusion as outpatient his last transfusion was a week ago, when she came to the emergency room and received 2 units of blood, he tells me that for the last few days he continued to have fatigue, malaise, cough, he tested positive for COVID yesterday, he was started on antibiotics, and steroids he has not taken them as of yet. But he tells me that when he was in clinic, his blood pressures were 60s over 40s, he did not feel well, provider advised patient to go to the emergency room however he declined. When he got home he continued to have fatigue, malaise, lightheadedness, denies any bloody stools but did have dark tarry stools, no hematemesis, no fevers, mild cough, no shortness of breath, no chest pain. Review of Systems Const: Denies: fever(s) Card: Denies: chest pain Resp: Denies: dyspnea GI: Reports: melena; Denies: abdominal pain, nausea, vomiting or coffee ground emesis : Denies: flank pain Musc: Denies: back pain Skin/Breast: Denies: rash Neuro: Denies: headache(s) Endo: Denies: polyuria Medications/Allergies Home Medications Medication Instructions Recorded Confirmed Last Taken Type aspirin 81 mg tablet,delayed 81 mg PO QAM 04/05/20 01/22/23 01/09/23 History release levocetirizine 5 mg tablet 5 mg PO QAM PRN Allergic Symptoms 01/01/23 01/22/23 Unknown History ferrous sulfate 325 mg (65 mg 325 mg PO QAM 01/09/23 01/22/23 01/09/23 History iron) tablet linaclotide 72 mcg capsule 72 mcg PO QAM 01/09/23 01/22/23 01/09/23 History (Linzess) montelukast 10 mg tablet 10 mg PO QAM PRN Allergic Symptoms 01/09/23 01/22/23 Unknown History (Singulair) multivit,Ca,min-iron 8 mg-folic 1 tab PO QAM 01/09/23 01/22/23 01/09/23 History acid 200 mcg-lycopene 600 mcg tablet (Centrum Men) pantoprazole 40 mg tablet,delayed 40 mg PO QAM 01/09/23 01/22/23 01/22/23 Histor y release rivaroxaban 20 mg tablet (Xarelto) 20 mg PO QPM 01/09/23 01/22/23 01/21/23 History azithromycin 250 mg tablet See Rx Instructions PO .COMPLEX #6 01/21/23 01/22/23 Unknown Rx tabs dexamethasone 6 mg tablet 6 mg PO DAILY 7 days #7 tabs 01/21/23 01/22/23 Unknown Rx galantamine 4 mg tablet 4 mg PO BID 01/22/23 01/22/23 Unknown History lubiprostone 24 mcg capsule 24 mcg PO BID 01/22/23 01/22/23 Unknown History sucralfate 1 gram tablet 1 g PO BID 01/22/23 01/22/23 Unknown History Allergies Allergy/AdvReac Type Severity Reaction Status Date / Time No Known Allergies Allergy Verified 01/21/23 13:16 PFSH Acute PFSH: Medical History Anemia Anticoagulated Cervical strain Chronic a-fib COPD (chronic obstructive pulmonary disease) COVID-19 GERD (gastroesophageal reflux disease) H/O iron deficiency anemia History of nonmelanoma skin cancer History of prostate cancer Lower respiratory infection Lower respiratory infection Lung nodule Mixed hyperlipidemia Primary osteoarthritis, right shoulder Skin cancer of scalp Upper respiratory infection Vitamin B 12 deficiency Vitamin D deficiency Surgical History History of open heart surgery Hx of colonoscopy Social History Smoking and tobacco/nicotine status: never used tobacco/nicotine Second hand smoke exposure: No Alcohol intake: never Substance/Drug Use: never Vitals/I&O/Wt Last Vital Signs Temp 97.8 F 01/22/23 11:44 Pulse 91 01/22/23 11:39 Resp 18 01/22/23 11:39 BP 140/86 01/22/23 11:44 Pulse Ox 98 01/22/23 11:39 O2 Del Method Room Air 01/22/23 11:39 Physical Exam Const: COMMON NORMALS: no acute distress and patient oriented x3 HENMT: COMMON NORMALS: normocephalic HEAD & SCALP: normocephalic Eye: COMMON NORMALS: Equal, round and reactive pupils present and EOMs intact bilaterally Neck/C-Spine: COMMON NORMALS: no JVD Lymph: LYMPHATIC: no lymphadenopathy noted Chest: COMMONS NORMALS: normal inspection of the chest Resp: COMMON NORMALS: normal respiratory effort, No retractions, No use of accessory muscles and clear to auscultation bilaterally AUSCULTATION: clear to auscultation bilaterally Cardio: COMMON NORMALS: regular rate, regular rhythm, S1 normal heart sound present and S2 normal heart sound present RATE: regular rate RHYTHM: regular rhythm HEART SOUNDS: S1 normal heart sound present and S2 normal heart sound present GI: COMMON NORMALS: Normal to inspection, nondistended, normoactive bowel sounds present, Soft to palpation and non-tender Extremity: COMMON NORMALS: no pedal edema Neuro: COMMON NORMALS: patient oriented x3, CN's II-XII intact bilaterally, moves all extremities and no focal motor deficits Psych: COMMON NORMALS: mental status grossly normal Data 01/22/23 11:42 01/22/23 11:42 A&P Assessment and plan (1) Acute upper GI bleed: (2) COVID-19: (3) Lower respiratory infection: (4) Alzheimer's dementia without behavioral disturbance: (5) Dementia: (6) Mixed hyperlipidemia: (7) Chronic a-fib: (8) H/O iron deficiency anemia: Plan GI bleed ? Patient took his Xarelto last night, hold for now ? INR is 1.86, ? Hemoglobin 7.8 ? Monitor hemoglobin every 6 hours ? Hemodynamics have been stable in the emergency room, continue to monitor closely ? Protonix 40 IV twice daily, Carafate 1 g every 6 hours ? ER provider has discussed with general surgery for consideration of EGD tomorrow ? We will keep on clears for now, n.p.o. over midnight ? Transfuse if hemoglobin is less than 7 ? We will hold off on Xarelto reversal agent as hemodynamics have been stable, hemoglobin is better compared to few days ago 7.8, no current evidence of clinical deterioration COVID19 -Positive -decadron -doxycycline -tessaslon perles -isolation precautions -monitor closely Attestations Medical Necessity Statement*: Patient requires hospitalization, inpatient, greater than 2 midnights, for GI bleed, anemia, Diagnoses Acute upper GI bleed K92.2 COVID-19 U07.1 Lower respiratory infection J22 Alzheimer's dementia without behavioral disturbance G30.9; F02.80 Dementia F03.90 Mixed hyperlipidemia E78.2 Chronic a-fib I48.20 H/O iron deficiency anemia Z86.2
[2023-01-22 14:40] LABS: Lactic Sepsis W/Reflex 2.1 mmol/L (0.5-2.2)
[2023-01-22 14:51] LABS: NT Pro B Type Natriuretic Pept 1841 pg/mL (0-450)
--- NOTE | 2023-01-22 15:50 | PM.CONSULT ---
Providers/Reason For Consult Consulting Physician/Specialty*: Dr. Jayesh Pereira, DO/General surgery Reason for Consult*: Anemia and melena Attending Physician: Antwon Shaikh MD Primary Care Provider: Marcela Qiu APN History of Present Illness History of Present Illness Damion Rojas is a 87 year old male on Xarelto for A-fib who presented to the hospital with progressive fatigue. He was recently diagnosed with COVID. He reports that for weeks now he has noticed black stools. He denies any abdominal pain, nausea, emesis. Review of Systems General: Reports: 10 or more systems reviewed and unremarkable except in HPI and below Medications/Allergies Home Medications Medication Instructions Recorded Confirmed Last Taken Type aspirin 81 mg tablet,delayed 81 mg PO QAM 04/05/20 01/22/23 01/09/23 History release levocetirizine 5 mg tablet 5 mg PO QAM PRN Allergic Symptoms 01/01/23 01/22/23 Unknown History ferrous sulfate 325 mg (65 mg 325 mg PO QAM 01/09/23 01/22/23 01/09/23 History iron) tablet linaclotide 72 mcg capsule 72 mcg PO QAM 01/09/23 01/22/23 01/09/23 History (Linzess) montelukast 10 mg tablet 10 mg PO QAM PRN Allergic Symptoms 01/09/23 01/22/23 Unknown History (Singulair) multivit,Ca,min-iron 8 mg-folic 1 tab PO QAM 01/09/23 01/22/23 01/09/23 History acid 200 mcg-lycopene 600 mcg tablet (Centrum Men) pantoprazole 40 mg tablet,delayed 40 mg PO QAM 01/09/23 01/22/23 01/22/23 History release rivaroxaban 20 mg tablet (Xarelto) 20 mg PO QPM 01/09/23 01/22/23 01/21/23 History azithromycin 250 mg tablet See Rx Instructions PO .COMPLEX #6 01/21/23 01/22/23 Unknown Rx tabs dexamethasone 6 mg tablet 6 mg PO DAILY 7 days #7 tabs 01/21/23 01/22/23 Unknown Rx galantamine 4 mg tablet 4 mg PO BID 01/22/23 01/22/23 Unknown History lubiprostone 24 mcg capsule 24 mcg PO BID 01/22/23 01/22/23 Unknown History sucralfate 1 gram tablet 1 g PO BID 01/22/23 01/22/23 Unknown History Allergies Allergy/AdvReac Type Severity Reaction Status Date / Time No Known Allergies Allergy Verified 01/21/23 13:16 PFSH Acute PFSH: Medical History Anemia Anticoagulated Cervical strain Chronic a-fib COPD (chronic obstructive pulmonary disease) COVID-19 GERD (gastroesophageal reflux disease) H/O iron deficiency anemia History of nonmelanoma skin cancer History of prostate cancer Lower respiratory infection Lower respiratory infection Lung nodule Mixed hyperlipidemia Primary osteoarthritis, right shoulder Skin cancer of scalp Upper respiratory infection Vitamin B 12 deficiency Vitamin D deficiency Surgical History History of open heart surgery Hx of colonoscopy Social History Smoking and tobacco/nicotine status: never used tobacco/nicotine Second hand smoke exposure: No Alcohol intake: never Substance/Drug Use: never Vitals/I&O/Wt Last Vital Signs Temp 97.8 F 01/22/23 11:44 Pulse 91 01/22/23 11:39 Resp 18 01/22/23 11:39 BP 140/86 01/22/23 11:44 Pulse Ox 98 01/22/23 11:39 O2 Del Method Room Air 01/22/23 11:39 Physical Exam Narrative: General : Patient is well developed , no acute distress, oriented x3 Head : Normal cephalic, a-traumatic. Ears : Pinnae and external canal are normal. Hearing is normal. Eyes : PERRLA, Sclera and injection are normal. No conjunctival discharge. Nose : Mucous membranes are without erythema. Throat : buccal mucosa is normal, gums are without significant recession or hypertrophy. Lungs : Equal chest rise bilaterally, no use of accessory muscles, trachea is midline. Cor : Rate and rhythm are normal. Abdomen : Soft, ND, NT, no g/r/m Extremities : No edema, no cyanosis or clubbing, dorsalis pedis pulses are present bilaterally, non-tender to palpation of calves. Upper extremities are normal bilaterally. Back : non-tender to palpation, no CVA tenderness. Neuro : CN II - XII intact, Upper and lower extremities have equal and full strength Data 01/23/23 08:45 01/23/23 04:26 A&P Assessment and plan (1) Melena: (2) Anemia: Plan EGD The risks and benefits of the procedure, including bleeding, infection, intestinal perforation requiring surgery, missed lesion were explained to the patient. The patient is understanding of the risks and wishes to proceed. Coding Level of Care Code 25232 Diagnoses Melena K92.1 Anemia D64.9
[2023-01-22 16:08] LABS: Reflex Lactate Order REFLEX LACTIC ORDERD
[2023-01-22 16:54] LABS: Procalcitonin 0.06 ng/mL (0-0.5); Thyroid Stimulating Hormone 1.12 uIU/mL (0.27-4.20)
[2023-01-22 17:11] LABS: C Reactive Protein 26.2 mg/L (0.0-4.9); Ferritin 52 ng/mL (30-400); Iron 18 ug/dL (59-158); Percent Saturation 5.2 % (20-50); Total Iron Binding Capacity 343 mcg/dl; Unsaturated Iron Binding 325 ug/dL (112-347)
[2023-01-22] MEDS: sucralfate 1 gm/10 mL Oral Liq UDC PO ×2 (18:17→21:05)
[2023-01-22] MEDS: sodium chloride 0.9% 1,000 ML 75 ML IV (18:17)
[2023-01-22] MEDS: dexamethasone 10 mg/mL INJ 6 MG IVP (18:17)
[2023-01-22] MEDS: doxycycline 100 MG in sodium chloride 0.9% (plus) 100 ML IV (18:19)
[2023-01-22] MEDS: pantoprazole 40 mg SDV IVP (18:19)
[2023-01-22 20:36] LABS: Hematocrit 26.7 % (37-53)
[2023-01-23] VITALS (9 sets, daily range): BP systolic 123–168; BP diastolic 64–88; PULSE 57–79; RESP 14–21; TEMP 36.1–36.5; O2SAT 96–100
[2023-01-23 02:47] LABS: Hematocrit 24.6 % (37-53)
[2023-01-23] MEDS: pantoprazole 40 mg SDV IVP (03:40)
[2023-01-23] MEDS: doxycycline 100 MG in sodium chloride 0.9% (plus) 100 ML IV (03:40)
[2023-01-23 05:09] LABS: Hematocrit 28.4 % (37-53); Lymphocytes # 3.1 10^3/uL (0.8-4.8); Lymphocytes % 35.9 %; Mean Corpuscular HGB Conc 30.3 g/dL (30-55); Mean Corpuscular Hemoglobin 25.3 pg (27-33); Mean Corpuscular Volume 83.5 fl (82-101); Mean Platelet Volume 11.4 fL (7.4-10.4); Monocytes # 0.4 10^3/uL (0.2-0.9); Monocytes % 4.7 %; Neutrophils # 5.14 10^3/uL (1.8-7.7); Neutrophils % 59.1 %; Nucleated Red Blood Cells % 0 %; Platelet Count 352 10^3/cmm (157-399); Red Cell Distribution Width 19.9 % (12.1-15.1); White Blood Count 8.71 10^3/uL (3.29-11.43)
[2023-01-23 05:22] LABS: INR 1.08 (0.8-1.2)
[2023-01-23 05:23] LABS: Partial Thromboplastin Time 33.1 SECONDS (23.9-36.7)
[2023-01-23 05:30] LABS: Alanine Aminotransferase 10 U/L (0-41); Albumin Level 3.9 g/dL (3.5-5.2); Alkaline Phosphatase 69 U/L (40-130); Aspartate Amino Transferase 24 U/L (0-40); Blood Urea Nitrogen 17 mg/dL (8-23); Calcium 8.7 mg/dL (8.5-10.5); Carbon Dioxide 21 mmol/L (22-29); Chloride 102 mmol/L (98-107); Globulin 2.8 g/dL (1.3-4.6); Glucose 172 mg/dL (65-115); Magnesium 2.3 mg/dL (1.7-2.3); Osmolality Calculated 290 mOsm/kg (285-295); Phosphorus 4.3 mg/dL (2.5-4.5); Sodium 137 mmol/L (136-145); Total Bilirubin 0.2 mg/dL (0.15-1.2); Total Protein 6.7 g/dL (6.6-8.7)
[2023-01-23] MEDS: sodium chloride 0.9% 1,000 ML 75 ML IV (08:24)
[2023-01-23 08:52] LABS: Hematocrit 25.3 % (37-53)
--- NOTE | 2023-01-23 10:01 | PM.PN ---
Vitals/I&O/Wt Last Vital Signs Temp 97.5 F L 01/23/23 08:00 Pulse 57 L 01/23/23 08:00 Resp 20 H 01/23/23 08:00 BP 144/70 01/23/23 08:00 Pulse Ox 98 01/23/23 08:00 O2 Del Method Room Air 01/23/23 08:00 01/22/23 01/23/23 01/23/23 22:59 06:59 14:59 Intake Total 905.667 / 905.667 100 / 4052.359 1237 / 1000 Balance 905.667 / 905.667 100 / 4733.556 8422 / 1000 Data 01/23/23 08:45 01/23/23 04:26 A&P Assessment and plan (1) Melena: (2) Anemia: Plan EGD The risks and benefits of the procedure, including bleeding, infection, intestinal perforation requiring surgery, missed lesion were explained to the patient. The patient is understanding of the risks and wishes to proceed. Attestations Medical Necessity Statement*: Per primary Coding Level of Care Code Acute Code for g Fwd Diagnoses Melena K92.1 Anemia D64.9
--- NOTE | 2023-01-23 10:11 | ECG_ITS ---
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 Measurements Intervals [place] Rate: 63 P: 0 MA: 0 QRS: 18 QRSD: 106 T: 44 QT: 432 QTc: 445 Interpretive Statements ATRIAL FIBRILLATION WITH ABERRANT CONDUCTION OR VENTRICULAR PREMATURE COMPLEXES Compared to ECG 08/15/2022 12:10:01 Ventricular premature complex(es) now present Aberrant conduction of supraventricular beat(s) now present Electronically Signed On 01-23-2023 19:08:02 CDT by Miki Barr M.D. [id number]
--- NOTE | 2023-01-23 10:36 | ANES.PREANE2 ---
Pre-Anesthetic Assessment Height/Weight: Height 1.83 m Weight 91.852 kg Temp Pulse Resp BP Pulse Ox O2 Del Method 97.5 F L 57 L 20 H 144/70 98 Room Air 01/23/23 08:00 01/23/23 08:00 01/23/23 08:00 01/23/23 08:00 01/23/23 08:00 01/23/23 08:00 Preop Diagnosis: melena Operation Date: 01/23/23 10:30 Proposed Procedures p EGD(Not Applicable) - Jayesh Pereira, DO Was Beta Tawanna taken within 24 hours: N/A Was Clonidine taken within 24 hours: N/A Social No alcohol and No tobacco Exam alert, oriented x 3, clear to auscultation bilaterally and regular rate & rhythm Airway Submandibular: within normal limits Cervical ROM: within normal limits Mallampati: Class I History/ROS No significant history except as noted and No significant complaints Pulmonary None reported covid positive, asymptomtic CV/HEM Atrial Fibrillation, Anemia, Coronary Artery Disease and Hypertension MVR. CABG 2012. denies CP, SOB None reported Hepatic None reported GI None reported Musc/skel None reported Neuropsych Dementia and Transient Ischemic Attack no deficits. alzheimers. oriented today Anesthetic Plan ASA status: 3 Anesthesia: Anesthesia Evaluation and MAC Risk of > 500 ml blood loss (7ml/kg in children): Yes, adequate IV access and fluids planned Medications/Allergies Home Medications Medication Instructions Recorded Confirmed Last Taken Type aspirin 81 mg tablet,delayed 81 mg PO QAM 04/05/20 01/22/23 01/09/23 History release levocetirizine 5 mg tablet 5 mg PO QAM PRN Allergic Symptoms 01/01/23 01/22/23 Unknown History ferrous sulfate 325 mg (65 mg 325 mg PO QAM 01/09/23 01/22/23 01/09/23 History iron) tablet linaclotide 72 mcg capsule 72 mcg PO QAM 01/09/23 01/22/23 01/09/23 History (Linzess) montelukast 10 mg tablet 10 mg PO QAM PRN Allergic Symptoms 01/09/23 01/22/23 Unknown History (Singulair) multivit,Ca,min-iron 8 mg-folic 1 tab PO QAM 01/09/23 01/22/23 01/09/23 History acid 200 mcg-lycopene 600 mcg tablet (Centrum Men) pantoprazole 40 mg tablet,delayed 40 mg PO QAM 01/09/23 01/22/23 01/22/23 History release rivaroxaban 20 mg tablet (Xarelto) 20 mg PO QPM 01/09/23 01/22/23 01/21/23 History azithromycin 250 mg tablet See Rx Instructions PO .COMPLEX #6 01/21/23 01/22/23 Unknown Rx tabs dexamethasone 6 mg tablet 6 mg PO DAILY 7 days #7 tabs 01/21/23 01/22/23 Unknown Rx galantamine 4 mg tablet 4 mg PO BID 01/22/23 01/22/23 Unknown History lubiprostone 24 mcg capsule 24 mcg PO BID 01/22/23 01/22/23 Unknown History sucralfate 1 gram tablet 1 g PO BID 01/22/23 01/22/23 Unknown History Allergies Allergy/AdvReac Type Severity Reaction Status Date / Time No Known Allergies Allergy Verified 01/21/23 13:16 Current Medications Generic Name Dose Route Start Last Admin Trade Name Jacintoq PRN Reason Stop Dose Admin Dexamethasone 6 mg 01/22/23 16:02 01/22/23 18:17 Dexamethasone 10 Mg/Ml Inj IVP 6 mg Q24H CASSIE Administration Sodium Chloride 1,000 mls @ 75 mls/hr 01/22/23 16:02 01/23/23 08:24 Sodium Chloride 0.9% IV 75 mls/hr .L22H22H CASSIE Administration Doxycycline Hyclate 100 mg/ 100 mls @ 100 mls/hr 01/22/23 16:02 01/23/23 04:44 Sodium Chloride IV Infused Q12H CASSIE Infusion Protocol Non-Formulary Medication 4 mg 01/22/23 18:00 01/23/23 08:21 Galantamine PO Not Given BID CASSIE Pantoprazole Sodium 40 mg 01/22/23 16:02 01/23/23 03:40 Pantoprazole 40 Mg Sdv IVP 40 mg Q12H CASSIE Administration Sucralfate 1 gm 01/22/23 16:02 01/23/23 09:59 Sucralfate 1 Gm/10 Ml Oral Liq Udc PO Not Given Q6H CASSIE PFSH Anesthesia Medical History Anemia Anticoagulated Cervical strain Chronic a-fib COPD (chronic obstructive pulmonary disease) COVID-19 GERD (gastroesophageal reflux disease) H/O iron deficiency anemia History of nonmelanoma skin cancer History of prostate cancer Lower respiratory infection Lower respiratory infection Lung nodule Mixed hyperlipidemia Primary osteoarthritis, right shoulder Skin cancer of scalp Upper respiratory infection Vitamin B 12 deficiency Vitamin D deficiency Surgical History History of open heart surgery Hx of colonoscopy Social History Smoking and tobacco/nicotine status: never used tobacco/nicotine Second hand smoke exposure: No Alcohol intake: never Substance/Drug Use: never Data Anesthesia 01/23/23 08:45 01/23/23 04:26 Short CBC 01/22/23 01/22/23 01/22/23 Range/Units 11:42 14:27 20:30 WBC 7.68 (3.29-11.43) 10^3/uL Hgb 7.80 L 7.30 L 8.20 L (11.27-16.99) g/dL Hct 25.3 L 23.5 L 26.7 L (37-53) % MCV 81.1 L (82-101) fl Plt Count 305 (157-399) 10^3/cmm Neut % (Auto) 60.3 % Neut # (Auto) 4.63 (1.8-7.7) 10^3/uL 01/23/23 01/23/23 01/23/23 Range/Units 02:30 02:30 04:26 WBC Cancelled 8.71 (3.29-11.43) 10^3/uL Hgb 7.50 L Cancelled 8.60 L (11.27-16.99) g/dL Hct 24.6 L Cancelled 28.4 L (37-53) % MCV Cancelled 83.5 (82-101) fl Plt Count Cancelled 352 (157-399) 10^3/cmm Neut % (Auto) Cancelled 59.1 % Neut # (Auto) Cancelled 5.14 (1.8-7.7) 10^3/uL 01/23/23 Range/Units 08:45 WBC (3.29-11.43) 10^3/uL Hgb 7.70 L (11.27-16.99) g/dL Hct 25.3 L (37-53) % MCV (82-101) fl Plt Count (157-399) 10^3/cmm Neut % (Auto) % Neut # (Auto) (1.8-7.7) 10^3/uL BMP 01/22/23 01/23/23 11:42 04:26 Sodium 126 L 137 Potassium 3.9 5.0 Chloride 93 L 102 Carbon Dioxide 23 21 L BUN 20 17 Creatinine 1.0 1.0 Glucose 120 H 172 H Calcium 8.6 8.7 Cardiac Enzymes 01/22/23 Range/Units 11:42 NT-Pro-B Natriuret Pep 1841 H (0-450) pg/mL Liver Function 01/22/23 01/23/23 Range/Units 11:42 04:26 Total Bilirubin 0.2 0.2 (0.15-1.2) mg/dL AST 19 24 (0-40) U/L ALT 8 10 (0-41) U/L Alkaline Phosphatase 65 69 (40-130) U/L Albumin 3.9 3.9 (3.5-5.2) g/dL Blood Bank 01/22/23 11:42 Blood Type O Positive Rho(D) Type Positive Antibody Screen Negative Coags 01/22/23 01/22/23 01/23/23 11:42 11:42 04:26 PT 21.60 H 14.40 D INR 1.81 H 1.08 APTT 33.1 C-Reactive Protein 26.2 H Cardiac Studies: Echocardiogram 11/02/22
--- NOTE | 2023-01-23 10:56 | PC.CHAP ---
Pastoral Care Encounter/Spiritual Assessment Type of Contact [] Declined marketing administrator visit [] Patient/Family/Request visit [] Outpatient visit [] Follow-up visit [] Physician referral [] Code/Alert [x] Routine visit [] Staff referral [] Actively dying [] Patient sleeping [] Family support [] [] Out of room [] Palliative care [] [] Receiving care in room [] Pre-surgical visit [] Trauma [] Long length of stay [] ICU visit [] Other: Relational/Emotional Strength [] Patient feels connected with others/family/visitors/staff [] Distress [] Loneliness/isolation [] Abandonment Spirituality of Patient [] Person of Nenita [] Attends Methodist of their [place]ita [] Believes in Prayer [] Reads Bible or Voodoo materials [] There are Spiritual issues to be addressed Decoration Checker Interventions [x] Prayer [] Active listening [] Non-anxious presence [] Spiritual/emotional support [] Crisis/trauma care [] Spiritual counseling [] Bereavement support [] Provided bereavement packet [] Provided Bible/devotional materials [] Provided toy/stuffed animal, coloring book to patient or family member [] Provided Communion [] Anointing/[place] [] Salvation [] Completed spiritual assessment [] Other: Impact on Illness or Injury [] Angry [] Fearful [] Anxious [] Often cries [] Exhaustion [] Unable to work [] Unable to attend uatsdin [] Unable to walk/stand [] Unable to read [] Unable to drive [] Unable to eat/drink [] Unable to sleep [] Unable to be with family [] Patient intubated [] Other: Summary Time spent with patient 10 min
--- NOTE | 2023-01-23 11:50 | PM.DCS ---
Discharge Providers Date of Admission: 01/22/23 14:01 Date of Discharge: January 23, 2023 Attending Provider at Admission: Antwon Shaikh MD Attending Provider at Discharge: Antwon Shaikh MD Primary Care Provider: Marcela Qiu APN Diagnoses at Discharge Discharge Diagnosis (1) Melena: Status: Resolved (2) Anemia: Status: Acute Reason for Visit Reason for Visit: rectal bleeding Hospital Course Hospital Course Damion Rojas is a 87 year old male with a past medical history of anemia, chronic atrial fibrillation on Xarelto, history of iron deficiency anemia, who presents to [facility] due to fatigue, malaise,.? Patient tells me that he has had fatigue and malaise, he receives transfusion as outpatient his last transfusion was a week ago, when she came to the emergency room and received 2 units of blood, he tells me that for the last few days he continued to have fatigue, malaise, cough, he tested positive for COVID yesterday, he was started on antibiotics, and steroids he has not taken them as of yet.? But he tells me that when he was in clinic, his blood pressures were 60s over 40s, he did not feel well, provider advised patient to go to the emergency room however he declined.? When he got home he continued to have fatigue, malaise, lightheadedness, denies any bloody stools but did have dark tarry stools, no hematemesis, no fevers, mild cough, no shortness of breath, no chest pain. Patient was admitted to [facility] for concerns for GI bleed, n.p.o., IV fluids, general surgery consulted, EGD showed nonbleeding varices, no recurrent black tarry stools, no hematemesis, discharged on his home Xarelto and aspirin, if any recurrent bloody or black stools to go to the emergency room, hemoglobin at discharge 7.9. For his COVID-19 discharge instructions to self isolate, social distance, facemask, wash, telemetry for fevers, monitor respiratory status Physical Exam Const: COMMON NORMALS: no acute distress and patient oriented x3 Resp: COMMON NORMALS: normal respiratory effort, No retractions, No use of accessory muscles and clear to auscultation bilaterally AUSCULTATION: clear to auscultation bilaterally Cardio: COMMON NORMALS: regular rate, regular rhythm, S1 normal heart sound present and S2 normal heart sound present RATE: regular rate RHYTHM: regular rhythm HEART SOUNDS: S1 normal heart sound present and S2 normal heart sound present GI: COMMON NORMALS: Normal to inspection, nondistended, normoactive bowel sounds present and non-tender Extremity: COMMON NORMALS: no pedal edema Neuro: COMMON NORMALS: patient oriented x3 Psych: COMMON NORMALS: mental status grossly normal Discharge Data Studies Completed and Pending Completed Studies During Hospitalization Category Date Time Status CXRP [XR chest 1V portable [id number]] Stat Exams 01/22/23 11:43 Completed Pending at discharge Category Date Time Status Complete Blood Count w/Auto AM LABS Lab 01/24/23 04:00 Ordered Complete Blood Count w/Auto AM LABS Lab 01/25/23 04:00 Ordered Comprehensive Metabolic Panel AM LABS Lab 01/24/23 04:00 Ordered Comprehensive Metabolic Panel AM LABS Lab 01/25/23 04:00 Ordered Hemoglobin and Hematocrit Stat Lab 01/23/23 11:49 Ordered Magnesium AM LABS Lab 01/24/23 04:00 Ordered Magnesium AM LABS Lab 01/25/23 04:00 Ordered Partial Thromboplastin Time AM LABS Lab 01/24/23 04:00 Ordered Partial Thromboplastin Time AM LABS Lab 01/25/23 04:00 Ordered Phosphorus AM LABS Lab 01/24/23 04:00 Ordered Phosphorus AM LABS Lab 01/25/23 04:00 Ordered Prothrombin Time INR AM LABS Lab 01/24/23 04:00 Ordered Prothrombin Time INR AM LABS Lab 01/25/23 04:00 Ordered Urinalysis Routine Lab 01/22/23 16:02 Uncollected Laboratory Results WBC 8.71 10^3/uL (3.29-11.43) 01/23/23 04:26 Corrected WBC Cancelled 01/23/23 02:30 RBC 3.40 10^6/uL (3.85-5.65) L 01/23/23 04:26 Hgb 7.70 g/dL (11.27-16.99) L 01/23/23 08:45 Hct 25.3 % (37-53) L 01/23/23 08:45 MCV 83.5 fl (82-101) 01/23/23 04:26 MCH 25.3 pg (27-33) L 01/23/23 04:26 MCHC 30.3 g/dL (30-55) 01/23/23 04:26 RDW 19.9 % (12.1-15.1) H 01/23/23 04:26 Plt Count 352 10^3/cmm (157-399) 01/23/23 04:26 MPV 11.4 fL (7.4-10.4) H 01/23/23 04:26 Gran % Cancelled 01/23/23 02:30 Neut % (Auto) 59.1 % 01/23/23 04:26 Lymph % (Auto) 35.9 % 01/23/23 04:26 [place] % (Auto) 4.7 % 01/23/23 04:26 Eos % (Auto) 0.0 % 01/23/23 04:26 Baso % (Auto) 0.0 % 01/23/23 04:26 Neut # (Auto) 5.14 10^3/uL (1.8-7.7) 01/23/23 04:26 Lymph # (Auto) 3.1 10^3/uL (0.8-4.8) 01/23/23 04:26 [place] # (Auto) 0.4 10^3/uL (0.2-0.9) 01/23/23 04:26 Eos # (Auto) 0.0 10^3/uL (0.0-0.8) 01/23/23 04:26 Baso # (Auto) 0.0 10^3/uL (0.0-0.1) 01/23/23 04:26 Absolute Gran (auto) Cancelled 01/23/23 02:30 Nucleated RBC % (auto) 0 % 01/23/23 04:26 Nucleated RBCs # 0.0 /100WBC 01/23/23 04:26 PT 14.40 SECONDS (12.1-14.9) D 01/23/23 04:26 INR 1.08 (0.8-1.2) 01/23/23 04:26 APTT 33.1 SECONDS (23.9-36.7) 01/23/23 04:26 Sodium 137 mmol/L (136-145) 01/23/23 04:26 Potassium 5.0 mmol/L (3.5-5.1) 01/23/23 04:26 Chloride 102 mmol/L (98-107) 01/23/23 04:26 Carbon Dioxide 21 mmol/L (22-29) L 01/23/23 04:26 Anion Gap 19.0 (5-19) 01/23/23 04:26 BUN 17 mg/dL (8-23) 01/23/23 04:26 Creatinine 1.0 mg/dL (0.7-1.2) 01/23/23 04:26 GFR Calculation Not Reportable 01/23/23 04:26 Glucose 172 mg/dL (65-115) H 01/23/23 04:26 Calculated Osmolality 290 mOsm/kg (285-295) 01/23/23 04:26 Lactic Acid 2.1 mmol/L (0.5-2.2) 01/22/23 11:42 Lactic Acid (Sepsis) 1.0 mmol/L (0.5-2.2) 01/22/23 16:29 Calcium 8.7 mg/dL (8.5-10.5) 01/23/23 04:26 Phosphorus 4.3 mg/dL (2.5-4.5) 01/23/23 04:26 Magnesium 2.3 mg/dL (1.7-2.3) 01/23/23 04:26 Iron 18 ug/dL (59-158) L 01/22/23 11:42 TIBC 343 mcg/dl 01/22/23 11:42 % Saturation 5.2 % (20-50) L 01/22/23 11:42 Unsat Iron Binding 325 ug/dL (112-347) 01/22/23 11:42 Ferritin 52 ng/mL (30-400) 01/22/23 11:42 Total Bilirubin 0.2 mg/dL (0.15-1.2) 01/23/23 04:26 AST 24 U/L (0-40) 01/23/23 04:26 ALT 10 U/L (0-41) 01/23/23 04:26 Alkaline Phosphatase 69 U/L (40-130) 01/23/23 04:26 C-Reactive Protein 26.2 mg/L (0.0-4.9) H 01/22/23 11:42 NT-Pro-B Natriuret Pep 1841 pg/mL (0-450) H 01/22/23 11:42 Total Protein 6.7 g/dL (6.6-8.7) 01/23/23 04:26 Albumin 3.9 g/dL (3.5-5.2) 01/23/23 04:26 Globulin 2.8 g/dL (1.3-4.6) 01/23/23 04:26 Procalcitonin 0.06 ng/mL (0-0.5) 01/22/23 11:42 TSH 1.12 uIU/mL (0.27-4.20) 01/22/23 11:42 Blood Type O Positive 01/22/23 11:42 Rho(D) Type Positive 01/22/23 11:42 Antibody Screen Negative 01/22/23 11:42 Vitals Last Vital Signs Temp 97.0 F L 01/23/23 11:03 Pulse 67 01/23/23 11:14 Resp 14 01/23/23 11:14 BP 123/64 01/23/23 11:14 Pulse Ox 99 01/23/23 11:14 O2 Del Method Room Air 01/23/23 11:14 Discharge Plan Discharge Patient Disposition: Home Condition: Stable Prescriptions: Continued aspirin 81 mg tablet,delayed release (DR/EC) 81 mg PO QAM levocetirizine 5 mg tablet 5 mg PO QAM PRN (Reason: Allergic Symptoms) Rx Instructions: TAKE 1 TABLET BY MOUTH DAILY NEEDED FOR ALLERGY SYMPTOMS ferrous sulfate 325 mg (65 mg iron) tablet 325 mg PO QAM montelukast [Singulair] 10 mg tablet 10 mg PO QAM PRN (Reason: Allergic Symptoms) Xarelto 20 mg tablet 20 mg PO QPM Rx Instructions: must administer with evening meal 340B Linzess 72 mcg capsule 72 mcg PO QAM Rx Instructions: 340 B Centrum Men 8 mg iron- 200 mcg-600 mcg Tablet 1 tab PO QAM sucralfate 1 gram tablet 1 g PO BID galantamine 4 mg tablet 4 mg PO BID lubiprostone 24 mcg capsule 24 mcg PO BID Changed pantoprazole 40 mg tablet,delayed release (DR/EC) 40 mg PO Q12H 30 Days Qty: 60 0RF No Action promethazine-DM 6.25-15 mg/5 mL syrup 5 - 10 ml PO Q6H PRN (Reason: cough) 14 Days Qty: 473 0RF Discharge Orders: Discharge Order (Routine); Ordered 01/23/23 Ordered By: Antwon Shaikh Referrals: Jayesh Pereira DO [Physician] - 2 weeks (We have notified your physician's clinic of the need for a follow-up appointment to be scheduled. If you have not heard from them within the next 2 business days, please call them directly. You may also reach out to our decision support manager at [phone] and she can assist you. fazed referral) Marcela Qiu FNP [Primary Care Provider] - 01/31/23 10:00 am Discharge Diet: Cardiac Discharge Activity: Resume usual activity Patient Instructions: Gastrointestinal Bleeding (GEN), GI Discharge Instructions, Opioid Safety Activity Restrictions/Additional Instructions: - For COVID-19 continue to self isolate, socially distance, facemask, can continue azithromycin, and Decadron -If you have any recurrent bloody or black stools please go to emergency room -Please see CARMELINA cao on Saturday for recheck hemoglobin Discharge Attestations Time Spent in Discharge Care*: greater than 30 min Quality Metrics Clinical Quality Measures [ No reported AMI, CVA or VTE this stay] Coding Level of Care Code 09002 Total time (in minutes) for Discharge: 45 Diagnoses Melena K92.1 Anemia D64.9
[2023-01-23] MEDS: iron sucrose 200 MG in sodium chloride 0.9% (100 ml) 100 ML 220 MG IV (12:23)
[2023-01-23 13:12] LABS: Hematocrit 26.4 % (37-53)
--- NOTE | 2023-01-23 13:32 | ANE.PACU2 ---
Inpatient post-anesthesia follow up: Airway intact: Yes Vital signs: Temperature 97.2 F Pulse Rate 79 Respiratory Rate 21 Blood Pressure 148/74 Pulse Oximetry 98 Oxygen Delivery Me thod [ Room Air Current Rate & Del maco] Oxygen Delivery Me thod Room Air Oxygen Flow Rate Fraction of Inspir ed Oxygen Hydration adequate: Yes Nausea and vomiting: No Pain level: 2 Mental status: Baseline
== END 2023-01-23 14:29 | disposition home or self-care (01) | DRG 377 ==
LOC: ER 12:55 → MEDSURG 14:03
PROVIDERS: Surgery; Admitting Provider Family Medicine; Emergency Provider Emergency Medicine; PCP Nurse Practitioner; Visit Provider Family Medicine
PROC: 0DJ08ZZ Inspection of Upper Intestinal Tract, Via Natural or Artificial Opening Endoscopic (ICD-10-PCS; CPT 43235; principal; 2023-01-23 10:30)
DX: K92.1 Melena (principal); U07.1 COVID-19; I48.20 Chronic atrial fibrillation, unspecified; D50.9 Iron deficiency anemia, unspecified; Z79.01 Long term (current) use of anticoagulants; Z79.82 Long term (current) use of aspirin; J44.9 Chronic obstructive pulmonary disease, unspecified; Z85.828 Personal history of other malignant neoplasm of skin; Z85.46 Personal history of malignant neoplasm of prostate; E78.2 Mixed hyperlipidemia; J22 Unspecified acute lower respiratory infection; G30.9 Alzheimer's disease, unspecified; F02.80 Dementia in other diseases classified elsewhere, unspecified severity, without behavioral disturbance, psychotic disturbance, mood disturbance, and anxiety; I85.00 Esophageal varices without bleeding
CPT/HCPCS: 36415; 43235; 71045; 80053; 82728; 83540; 83550; 83605; 83735; 83880; 84100; 84145; 84443; 85007; 85014; 85018; 85025; 85027; 85610; 85730; 86140; 86850; 86900; 87400; 87426; 93005; 94664; 96365; 96366; 96375; 99285; C9113; J1100; J1756; J2704; J3010; J3490; J7030

== ENCOUNTER → 2023-01-31 11:12 | Outpatient (BNVA) | payer MEDICARE, OTHER, SELFPAY | PROVIDERS: PCP Nurse Practitioner; Visit Provider Nurse Practitioner Family | DX: D64.9 Anemia, unspecified (principal); Z09 Encounter for follow-up examination after completed treatment for conditions other than malignant neoplasm | CPT/HCPCS: 85025 ==

== ENCOUNTER → 2023-02-13 14:13 | Outpatient (BNVA) | payer MEDICARE, OTHER, SELFPAY | PROVIDERS: PCP Nurse Practitioner; Visit Provider Surgery | DX: Z09 Encounter for follow-up examination after completed treatment for conditions other than malignant neoplasm (principal); I85.00 Esophageal varices without bleeding; D64.9 Anemia, unspecified; Z86.2 Personal history of diseases of the blood and blood-forming organs and certain disorders involving the immune mechanism; Z79.899 Other long term (current) drug therapy; R06.02 Shortness of breath; I48.20 Chronic atrial fibrillation, unspecified | CPT/HCPCS: 80053; 81003; 82728; 83036; 83550; 83880; 85025; 99203; 99213 ==

== ENCOUNTER → 2023-02-18 10:57 | Outpatient (BNVA) | payer MEDICARE, OTHER, SELFPAY | PROVIDERS: PCP Nurse Practitioner; Visit Provider Nurse Practitioner Family | DX: D64.9 Anemia, unspecified (principal) | CPT/HCPCS: 80053; 82728; 83550; 85025 ==

== ENCOUNTER → 2023-02-25 11:24 | Outpatient (BNVA) | payer MEDICARE, OTHER, SELFPAY | PROVIDERS: PCP Nurse Practitioner; Visit Provider Nurse Practitioner Family | DX: D64.9 Anemia, unspecified (principal) | CPT/HCPCS: 80053; 83550; 85025 ==

== ENCOUNTER → 2023-03-05 10:08 | Outpatient (BNVA) | payer MEDICARE, OTHER, SELFPAY | PROVIDERS: PCP Nurse Practitioner; Visit Provider Nurse Practitioner Family | DX: D64.9 Anemia, unspecified (principal) | CPT/HCPCS: 85025 ==

== ENCOUNTER → 2023-03-11 10:16 | Outpatient (BNVA) | payer MEDICARE, OTHER, SELFPAY | PROVIDERS: PCP Nurse Practitioner Family; Visit Provider Specialist | DX: R26.9 Unspecified abnormalities of gait and mobility (principal); G30.9 Alzheimer's disease, unspecified; F02.80 Dementia in other diseases classified elsewhere, unspecified severity, without behavioral disturbance, psychotic disturbance, mood disturbance, and anxiety; I48.20 Chronic atrial fibrillation, unspecified; K59.00 Constipation, unspecified | CPT/HCPCS: 99214 ==

== ENCOUNTER 2023-03-28 08:29 | Oncology outpatient (recurring) (ONCR) | payer MEDICARE, OTHER, SELFPAY ==
[2023-03-28] MEDS: ferric carboxy (IVPB) 750 MG in sodium chloride 0.9% (100 ml) 100 ML 345 MG IV (09:30)
[2023-03-28 10:07] VITALS: BP 140/78; PULSE 78; RESP 18; TEMP 36.6; O2SAT 98
== END 2023-03-31 23:59 | disposition home or self-care (01) ==
PROVIDERS: PCP Nurse Practitioner Family; Visit Provider Nurse Practitioner Family
DX: K90.9 Intestinal malabsorption, unspecified (principal); Z86.2 Personal history of diseases of the blood and blood-forming organs and certain disorders involving the immune mechanism; Z53.9 Procedure and treatment not carried out, unspecified reason
CPT/HCPCS: 96365; J1439

== ENCOUNTER 2023-04-04 12:59 | Oncology outpatient (recurring) (ONCR) | payer MEDICARE, OTHER, SELFPAY ==
[2023-04-04] MEDS: ferric carboxy (IVPB) 750 MG in sodium chloride 0.9% (100 ml) 100 ML 345 MG IV (13:59)
== END 2023-05-01 23:59 | disposition home or self-care (01) ==
PROVIDERS: PCP Nurse Practitioner Family; Visit Provider Nurse Practitioner Family
DX: K90.9 Intestinal malabsorption, unspecified (principal); Z86.2 Personal history of diseases of the blood and blood-forming organs and certain disorders involving the immune mechanism
CPT/HCPCS: 85025; 96365; J1439

== ENCOUNTER → 2023-04-10 16:10 | Outpatient (BNVA) | payer MEDICARE, OTHER, SELFPAY | PROVIDERS: PCP Nurse Practitioner Family; Visit Provider Family Medicine | DX: Z79.01 Long term (current) use of anticoagulants (principal); E53.8 Deficiency of other specified B group vitamins; K21.9 Gastro-esophageal reflux disease without esophagitis; I85.00 Esophageal varices without bleeding; Z86.2 Personal history of diseases of the blood and blood-forming organs and certain disorders involving the immune mechanism; K92.1 Melena; K90.9 Intestinal malabsorption, unspecified; K59.01 Slow transit constipation; I48.11 Longstanding persistent atrial fibrillation | CPT/HCPCS: 80053; 83540; 85025 ==

== ENCOUNTER 2023-05-07 12:28 | Emergency (ER) | payer MEDICARE, OTHER, SELFPAY ==
[2023-05-07 12:33] VITALS: BP 135/75; PULSE 81; RESP 12; TEMP 36.6; O2SAT 98; BMI 27.3
--- NOTE | 2023-05-07 12:50 | ED_ITS ---
HPI - Headache 2 General: Chief Complaint: Headache Stated Complaint: dizzy Time Seen by Provider: 05/07/23 12:43 Source: patient Mode of arrival: ambulatory History of Present Illness: 87-year-old male presents to the emergen cy room with complaints of right temporal pain that is intermittent and sharp throbbing-like pain. Began yesterday. He is concerned because he was told he previously had a mini stroke he has known history of atrial fibrillation he was previously on anticoagulants but is stopped because of GI bleeding he currently is on baby aspirin daily he is not on any anticoag hyperlipidemic's. He is concerned he is having a stroke he has no weakness no difficulty speech swallowing or vision no chest pain abdominal pain no balance problem no nausea or vomiting. Stroke score is negative with no focal neurologic deficits MD elicited complaint: headache Onset (ago): day(s) (1) Onset description: gradually Location: right and temporal Quality & Timing: throbbing Exacerbating factors: none Relieving factors: nothing Associated symptoms: Deny chest pain, confusion, cough, diaphoresis, eye pain, eye redness, fever(s), lightheadedness, loss of vision, malaise, nausea, neck stiffness, numbness, paresthesias, photophobia, pre-syncope, rash, seizures, short of breath, sound sensitivity, syncope, vomiting or weakness Review of Systems 2 Const: Denies: fever(s), malaise or diaphoresis Card: Denies: chest pain, lightheadedness, syncope or pre-syncope GI: Denies: nausea or vomiting Skin/Breast: Denies: rash Neuro: Denies: confusion PFSH ED 2 PFSH: Medical History Malabsorption of iron Shortness of breath Medication management COVID-19 Lower respiratory infection Primary osteoarthritis, right shoulder Lower respiratory infection Upper respiratory infection History of nonmelanoma skin cancer Skin cancer of scalp Cervical strain Cough Mixed hyperlipidemia Vitamin D deficiency Anemia Vitamin B 12 deficiency Anticoagulated Chronic a-fib GERD (gastroesophageal reflux disease) COPD (chronic obstructive pulmonary disease) Lung nodule H/O iron deficiency anemia History of prostate cancer Surgical History Hx of colonoscopy History of open heart surgery Social History (Reviewed 05/07/23 @ 12:50 by WILBER Junior Smoking and tobacco/nicotine status: never used tobacco/nicotine Second hand smoke exposure: No Alcohol intake: never Substance/Drug Use: never Physical Exam 2 Const: GENERAL APPEARANCE: cooperative and comfortable O RIENTATION/CONSCIOUSNESS: Yes awake, Yes oriented to person, Yes oriented to place and Yes oriented to time HENMT: COMMON NORMALS: normocephalic, atraumatic and hearing grossly normal bilaterally HEAD & SCALP: normocephalic and atraumatic Eye: DIRECT OPHTHALMOSCOPY: No photophobia Resp: COMMON NORMALS: normal respiratory effort, No retractions, No use of accessory muscles and clear to auscultation bilaterally AUSCULTATION: clear to auscultation bilaterally Cardio: COMMON NORMALS: regular rate, regular rhythm and No murmurs present (Cardio) RATE: regular rate RHYTHM: regular rhythm GI: COMMON NORMALS: Soft to palpation and No hepatosplenomegaly present A USCULTATION: Yes normoactive bowel sounds PALPATION: Yes Soft to palpation, No Tenderness to palpation present (GI), No Guarding due to palpation present (GI) and Yes No hepatosplenomegaly present Extremity: COMMON NORMALS: normal to inspection, capillary refill normal, no clubbing, cyanosis or edema, no calf tenderness and no pedal edema Neuro: SENSORIUM/ORIENTATION: Yes oriented to person, Yes oriented to place and Yes oriented to time Skin: COMMON NORMALS: no rashes or lesions noted GENERAL SKIN EXAM: no rashes or lesions noted Course 2 Vital Signs: Vital signs: Vital Signs Temperature 97.8 F 05/07/23 12:33 Pulse Rate 81 05/07/23 12:33 Respiratory Rate 12 05/07/23 12:33 Blood Pressure 135/75 05/07/23 12:33 Pulse Oximetry 98 05/07/23 12:33 Oxygen Delivery Me thod Room Air 05/07/23 12:33 MDM - Headache Medical Decision Making CT head negative no focal neurologic deficits noted NIH score 0. Discharge patient home return if is further problems. Considered Gaston's palsy as an option but he does not have any other significant findings at this time it would establish that diagnosis return if has further problems. Medical Records I reviewed the patient's medical records. Lab Data I reviewed the patient's lab results. 05/07/23 13:26 05/07/23 13:[address] 05/07/23 12:52 IMPRESSION: No acute intracranial abnormality. Laboratory Results WBC 7.70 10^3/uL (3.29-11.43) 05/07/23 13:26 RBC 4.27 10^6/uL (3.85-5.65) 05/07/23 13:26 Hgb 11.80 g/dL (11.27-16.99) 05/07/23 13:26 Hct 37.5 % (37-53) 05/07/23 13:26 MCV 87.8 fl (82-101) 05/07/23 13:26 MCH 27.6 pg (27-33) 05/07/23 13:26 MCHC 31.5 g/dL (30-55) 05/07/23 13:26 RDW 22.5 % (12.1-15.1) H 05/07/23 13:26 Plt Count 258 10^3/cmm (157-399) 05/07/23 13:26 MPV 10.6 fL (7.4-10.4) H 05/07/23 13:26 Neut % (Auto) 61.0 % 05/07/23 13:26 Lymph % (Auto) 25.8 % 05/07/23 13:26 [place] % (Auto) 10.3 % 05/07/23 13:26 Eos % (Auto) 1.9 % 05/07/23 13:26 Baso % (Auto) 0.6 % 05/07/23 13:26 Neut # (Auto) 4.69 10^3/uL (1.8-7.7) 05/07/23 13:26 Lymph # (Auto) 2.0 10^3/uL (0.8-4.8) 05/07/23 13:26 [place] # (Auto) 0.8 10^3/uL (0.2-0.9) 05/07/23 13:26 Eos # (Auto) 0.2 10^3/uL (0.0-0.8) 05/07/23 13:26 Baso # (Auto) 0.1 10^3/uL (0.0-0.1) 05/07/23 13:26 Nucleated RBC % (auto) 0 % 05/07/23 13:26 Nucleated RBCs # 0.0 /100WBC 05/07/23 13:26 Sodium 132 mmol/L (136-145) L 05/07/23 13:26 Potassium 4.6 mmol/L (3.5-5.1) 05/07/23 13:26 Chloride 100 mmol/L (98-107) 05/07/23 13:26 Carbon Dioxide 24 mmol/L (22-29) 05/07/23 13:26 Anion Gap 12.6 (5-19) 05/07/23 13:26 BUN 11 mg/dL (8-23) 05/07/23 13:26 Creatinine 0.8 mg/dL (0.7-1.2) 05/07/23 13:26 GFR Calculation Not Reportable 05/07/23 13:26 Glucose 79 mg/dL (65-115) 05/07/23 13:26 Calculated Osmolality 272 mOsm/kg (285-295) L 05/07/23 13:26 Calcium 8.9 mg/dL (8.5-10.5) 05/07/23 13:26 Total Bilirubin 0.2 mg/dL (0.15-1.2) 05/07/23 13:26 AST 14 U/L (0-40) 05/07/23 13:26 ALT 7 U/L (0-41) 05/07/23 13:26 Alkaline Phosphatase 81 U/L (40-130) 05/07/23 13:26 Total Protein 6.8 g/dL (6.6-8.7) 05/07/23 13:26 Albumin 3.7 g/dL (3.5-5.2) 05/07/23 13:26 Globulin 3.1 g/dL (1.3-4.6) 05/07/23 13:26 All radiology interpretation(s) finalized by discharge Discharge Plan Discharge Patient Disposition: Home Clinical Impression: Headache Condition: Stable Prescriptions: No Action aspirin 81 mg tablet,delayed release (DR/EC) 81 mg PO QAM galantamine 4 mg tablet 4 mg PO BID Qty: 180 3RF pantoprazole 20 mg tablet,delayed release (DR/EC) 20 mg PO DAILY Qty: 90 1RF levocetirizine 5 mg tablet 5 mg PO QAM PRN (Reason: Allergic Symptoms) Rx Instructions: TAKE 1 TABLET BY MOUTH DAILY NEEDED FOR ALLERGY SYMPTOMS ferrous sulfate 325 mg (65 mg iron) tablet 325 mg PO QAM montelukast [Singulair] 10 mg tablet 10 mg PO QAM PRN (Reason: Allergic Symptoms) Linzess 72 mcg capsule 72 mcg PO QAM Rx Instructions: 340 B Centrum Men 8 mg iron- 200 mcg-600 mcg Tablet 1 tab PO QAM lubiprostone 24 mcg capsule 24 mcg PO BID Discharge Orders: Discharge ED (Routine); Ordered 05/07/23 Ordered By: Primo Eagle Referrals: CARMELINA Blancas, COVERAGE SPECIALIST [Primary Care Provider] - Discharge Diet: Usual diet Discharge Activity: Increase activity as tolerated Patient Instructions: Opioid Safety, Pain Management Activity Restrictions/Additional Instructions: Thank you for choosing [facility] for your healthcare needs today. Please realize this is an emergency room and that we are providing you with a medical screening exam and this may not be complete and all inclusive of all the testing and or work up that you may need to determine your ailment or severity of your illness. It is very important that you follow up as instructed or that you return to the Emergency Department should you have concerns or if your condition changes or worsens in any way. Continue your current medications follow-up with your primary care doctor. Coding Level of Care Code ED Testing Machine Operator for Tracy Walls NIH stroke score NIHSS Level Of Consciousness - 1a: 0 Level Of Consciousness Questions - 1b: Both Correct Level Of Consciousness Commands - 1c: Both Correct Best Gaze - 2: Normal Visual Matthews - 3: No Visual Loss Facial Palsy - 4: Normal Motor Arm Right - 5: No Drift Motor Arm Left - 5: No Drift Motor Leg Right - 6: No Drift Motor Leg Left - 6: No Drift Limb Ataxia - 7: Absent Sensory - 8: Normal Best Language - 9: No Aphasia Dysarthia - 10: Normal Extinction And Inattention - 11: 0 Score Total Score: 0
--- NOTE | 2023-05-07 12:52 | CTR_ITS ---
PROCEDURE INFORMATION: Exam: CT Head Without Contrast Exam date and time: 05/07/2023 1:11 PM Age: 87 years old Clinical indication: Pain; Headache; Additional info: Headache dizziness TECHNIQUE: Imaging protocol: Computed tomography of the head without contrast. Radiation optimization: All CT scans at this facility use at least one of these dose optimization techniques: automated exposure control; mA and/or kV adjustment per patient size (includes targeted exams where dose is matched to clinical indication); or iterative reconstruction. COMPARISON: MR head wo con* [id number] 11/29/2022 10:21 AM RADIATION DOSE METRICS: Total DLP (mGy-cm): 1102 FINDINGS: Brain: No intracranial hemorrhage. No acute infarct. No extra-axial fluid collection. Chronic right parasagittal occipital lobe encephalomalacia. Moderate periventricular and subcortical white matter hypodensities compatible with chronic small vessel ischemic disease. Cerebral ventricles: No ventriculomegaly. Paranasal sinuses: Visualized sinuses are unremarkable. No fluid levels. Mastoid air cells: Visualized mastoid air cells are well aerated. Bones/joints: Unremarkable. No acute fracture. Soft tissues: Unremarkable. CT/CT head wo con* [id number] IMPRESSION: No acute intracranial abnormality.
[2023-05-07 13:37] LABS: Basophils # 0.1 10^3/uL (0.0-0.1); Basophils % 0.6 %; Eosinophils # 0.2 10^3/uL (0.0-0.8); Eosinophils % 1.9 %; Hematocrit 37.5 % (37-53); Lymphocytes % 25.8 %; Mean Corpuscular HGB Conc 31.5 g/dL (30-55); Mean Corpuscular Hemoglobin 27.6 pg (27-33); Mean Corpuscular Volume 87.8 fl (82-101); Mean Platelet Volume 10.6 fL (7.4-10.4); Monocytes # 0.8 10^3/uL (0.2-0.9); Monocytes % 10.3 %; Neutrophils # 4.69 10^3/uL (1.8-7.7); Nucleated Red Blood Cells % 0 %; Platelet Count 258 10^3/cmm (157-399); Red Blood Count 4.27 10^6/uL (3.85-5.65); Red Cell Distribution Width 22.5 % (12.1-15.1)
[2023-05-07 13:57] LABS: Alanine Aminotransferase 7 U/L (0-41); Albumin Level 3.7 g/dL (3.5-5.2); Alkaline Phosphatase 81 U/L (40-130); Anion Gap 12.6 (5-19); Aspartate Amino Transferase 14 U/L (0-40); Blood Urea Nitrogen 11 mg/dL (8-23); Calcium 8.9 mg/dL (8.5-10.5); Carbon Dioxide 24 mmol/L (22-29); Chloride 100 mmol/L (98-107); Globulin 3.1 g/dL (1.3-4.6); Glucose 79 mg/dL (65-115); Osmolality Calculated 272 mOsm/kg (285-295); Potassium 4.6 mmol/L (3.5-5.1); Sodium 132 mmol/L (136-145); Total Bilirubin 0.2 mg/dL (0.15-1.2); Total Protein 6.8 g/dL (6.6-8.7)
== END 2023-05-07 14:04 | disposition home or self-care (01) ==
PROVIDERS: Emergency Provider Family Medicine; PCP Nurse Practitioner Family
DX: R51.9 Headache, unspecified (principal); Z79.82 Long term (current) use of aspirin; E78.2 Mixed hyperlipidemia; J44.9 Chronic obstructive pulmonary disease, unspecified; Z85.46 Personal history of malignant neoplasm of prostate
CPT/HCPCS: 36415; 70450; 80053; 85025; 99284

== ENCOUNTER 2023-06-01 19:50 | Emergency (ER) | payer MEDICARE, OTHER, SELFPAY ==
[2023-06-01 19:56] VITALS: BP 152/79; PULSE 81; RESP 17; TEMP 36.6; O2SAT 96; BMI 27.0
--- NOTE | 2023-06-01 20:03 | XRR_ITS ---
PROCEDURE INFORMATION: Exam: XR Left Shoulder Exam date and time: 06/01/2023 9:37 PM Age: 88 years old Clinical indication: Left; Patient HX: Lt shoulder pain post fall TECHNIQUE: Imaging protocol: Radiologic exam of the left shoulder. Views: 2 or more views. COMPARISON: CR XR chest 1V portable [id number] 01/22/2023 11:49 AM FINDINGS: Bones/joints: Questionable impacted humeral neck fracture. Soft tissues: Normal. XR/XR shoulder LT min 2V* [id number] IMPRESSION: Questionable impacted humeral neck fracture. Would recommend CT for further evaluation.
--- NOTE | 2023-06-01 21:42 | CTR_ITS ---
PROCEDURE INFORMATION: Exam: CT Cervical Spine Without Contrast Exam date and time: 06/01/2023 10:41 PM Age: 88 years old Clinical indication: Injury or trauma; Fall; Blunt trauma; Additional info: Head injury/headache TECHNIQUE: Imaging protocol: Computed tomography of the cervical spine without contrast. Radiation optimization: All CT scans at this facility use at least one of these dose optimization techniques: automated exposure control; mA and/or kV adjustment per patient size (includes targeted exams where dose is matched to clinical indication); or iterative reconstruction. COMPARISON: 1. CT chest w con* [id number] 09/12/2018 10:12 AM 2. MR cervical spin wo con* [id number] 11/29/2022 10:42 AM RADIATION DOSE METRICS: Total DLP (mGy-cm): 234.87 FINDINGS: Bones/joints: The cervical spine demonstrates marked degenerative changes at multiple levels. Negative for acute cervical spine fracture. Unremarkable cervical spine alignment. Lungs: Several small noncalcified nodules in left upper lobe apical segment. Largest included nodule 6 mm transverse diameter. Soft tissues: Unremarkable. CT/CT cervical spin wo con* [id number] IMPRESSION: 1. Negative for acute cervical spine pathology. 2. Multiple new left upper lobe pulmonary nodules. 3. For patients at low risk (minimal or absent history of smoking and of other known risk factors), no routine follow-up is indicated. For patients at high risk (history of smoking or of other known risk factors), consider optional CT Chest at 12 months. (Reference: Mohan) REFERENCES: Mohan Morris et al. Guidelines for Management of Incidental Pulmonary Nodules Detected on CT Images: From the Fleischner Society 2017. Radiology. 2017;284(1):228-243.
--- NOTE | 2023-06-01 21:42 | CTR_ITS ---
PROCEDURE INFORMATION: Exam: CT Head Without Contrast Exam date and time: 06/01/2023 10:38 PM Age: 88 years old Clinical indication: Injury or trauma; Fall; Blunt trauma (contusions or hematomas); Additional info: Head injury/headache TECHNIQUE: Imaging protocol: Computed tomography of the head without contrast. Radiation optimization: All CT scans at this facility use at least one of these dose optimization techniques: automated exposure control; mA and/or kV adjustment per patient size (includes targeted exams where dose is matched to clinical indication); or iterative reconstruction. COMPARISON: CT head wo con* [id number] 05/07/2023 1:11 PM RADIATION DOSE METRICS: Total DLP (mGy-cm): 1108 FINDINGS: Brain: There is moderate cerebral atrophy. There is moderate diffuse heterogeneity of the white matter attenuation, consistent with chronic white matter ischemic changes. Negative for acute intracranial hemorrhage. Negative for intracranial mass. Negative for midline shift of brain. Holman and white matter interfaces are unremarkable. Patchy encephalomalacia of the right occipital lobe. Cerebral ventricles: No ventriculomegaly. Paranasal sinuses: Visualized sinuses are unremarkable. No fluid levels. Mastoid air cells: Visualized mastoid air cells are well aerated. Bones/joints: Unremarkable. No acute fracture. Soft tissues: Unremarkable. CT/CT head wo con* [id number] IMPRESSION: Negative for acute intracranial pathology.
--- NOTE | 2023-06-01 21:42 | W.ED.EXTPRO ---
Documented by User: JONNATHAN Wilkinson 06/02/23 00:43 HPI - Extremity Problem General: Chief complaint: Extremity Injury, Upper Stated complaint: fall Left shoulder injury Time Seen by Provider: 06/01/23 21:34 Source: patient and family Mode of arrival: ambulatory Limitations: no limitations History of Present Illness: Patient is an 88-year-old male presents to the emergency department complaining of left shoulder pain status post fall on Saturday. Patient also states he hit his head when he fell, and has reported associated neck stiffness and pain to the right aspect of his occiput. He notes a surgical history on the left shoulder, stating he had some screws put in. He denies loss of consciousness and is not on a blood thinner. He denies any other injuries. Any movement of his left upper extremity causes significant pain to his left shoulder. This pain shoots down his left arm. He denies any numbness weakness or tingling of the left arm. Patient denies any breathing difficulties, chest pain, palpitations, or any other symptoms. Associated symptoms: Deny chest pain, fever(s) or rash Review of Systems General: Reports: 10 or more systems reviewed and unremarkable except in HPI and below Const: Reports: other (Fall); Denies: fever(s), chills or fatigue Eyes: Denies: change in vision ENMT: Denies: throat pain, ear or mastoid pain or nasal discharge Card: Denies: chest pain, palpitations, swelling of feet/ankles or lightheadedness Resp: Denies: dyspnea, productive cough or wheezing GI: Denies: abdominal pain, nausea, vomiting, diarrhea or constipation : Denies: flank pain, difficulty urinating, dysuria or urinary frequency Musc: Reports: neck pain, joint pain (Left shoulder), joint stiffness and limited range of motion; Denies: back pain, joint swelling, joint redness or joint warmth Skin/Breast: Denies: rash Neuro: Reports: headache(s); Denies: numbness in extremities or weakness in extremities PFSH ED PFSH: Medical History Malabsorption of iron Shortness of breath Medication management COVID-19 Lower respiratory infection Primary osteoarthritis, right shoulder Lower respiratory infection Upper respiratory infection History of nonmelanoma skin cancer Skin cancer of scalp Cervical strain Cough Mixed hyperlipidemia Vitamin D deficiency Anemia Vitamin B 12 deficiency Anticoagulated Chronic a-fib GERD (gastroesophageal reflux disease) COPD (chronic obstructive pulmonary disease) Lung nodule H/O iron deficiency anemia History of prostate cancer Surgical History Hx of colonoscopy History of open heart surgery Social History Smoking and tobacco/nicotine status: never used tobacco/nicotine Second hand smoke exposure: No Alcohol intake: never Substance/Drug Use: never Physical Exam Const: COMMON NORMALS: no acute distress, patient oriented x3 and no limitations GENERAL APPEARANCE: cooperative, comfortable and well developed ORIENTATION/CONSCIOUSNESS: Yes awake, Yes oriented to person, Yes oriented to place and Yes oriented to time HENMT: COMMON NORMALS: normocephalic, atraumatic and hearing grossly normal bilaterally HEAD & SCALP: normocephalic and atraumatic OTHER: Tenderness palpation about the occiput Eye: COMMON NORMALS: Equal, round and reactive pupils present, EOMs intact bilaterally and conjunctivae normal CONJUNCTIVA: Yes conjunctivae normal PUPIL: Yes Equal, round and reactive pupils present Neck/C-Spine: COMMON NORMALS: full ROM, supple and no JVD OTHER: Mild reproducible tenderness palpation about the right paracervical muscles Resp: COMMON NORMALS: normal respiratory effort, No retractions, No use of accessory muscles and clear to auscultation bilaterally AUSCULTATION: clear to auscultation bilaterally Cardio: COMMON NORMALS: no JVD, regular rate, regular rhythm, No clicks present (Cardio), No murmurs present (Cardio) and No rub (Cardio) RATE: regular rate RHYTHM: regular rhythm Back/Pelvis: COMMON NORMALS: thoracic and lumbar spine normal to inspection, no thoracic nor lumbar tenderness and thoraco-lumbar ROM normal Extremity: COMMON NORMALS: normal to inspection, capillary refill normal and no clubbing, cyanosis or edema LEFT UPPER EXTREMITY: Yes shoulder joint Left shoulder joint: Yes inspection (No obvious deformities or bruising), Yes palpation (Reproducible tenderness to palpation diffusely), Yes ROM (Severely limited due to pain) and Yes neurovascular exam (Intact) OTHER: Any special shoulder joint testing unable to be performed due to patient's pain level Neuro: COMMON NORMALS: patient oriented x3, CN's II-XII intact bilaterally, moves all extremities, no focal motor deficits and no sensory deficits noted SENSORIUM/ORIENTATION: Yes oriented to person, Yes oriented to place and Yes oriented to time Psych: COMMON NORMALS: mental status grossly normal and Normal thought process present THOUGHT PROCESS: Normal thought process present Skin: COMMON NORMALS: no rashes or lesions noted GENERAL SKIN EXAM: no rashes or lesions noted Course Vital Signs: Vital signs: Vital Signs Temperature 97.9 F 06/01/23 19:56 Pulse Rate 81 06/01/23 19:56 Respiratory Rate 17 06/01/23 19:56 Blood Pressure 152/79 06/01/23 19:56 Pulse Oximetry 96 06/01/23 19:56 Oxygen Delivery Me thod Room Air 06/01/23 19:56 MDM - Extremity (Nontraumatic) Medical Decision Making This patient was seen and evaluated in the emergency department today for evaluation of left shoulder pain status post fall today. Patient arrived in significant pain and was unable to move his arm. Vitals normal. He reports a prior surgery to the left shoulder but does not specify what kind. On examination patient has no range of motion due to the significance of his pain. There were no appreciable deformities or open fractures. He is also complaining of some right neck and head pain. Patient was given morphine and Zofran, which improved his pain greatly. Initial x-ray of the left shoulder was suspicious for impacted humeral neck fracture, but a CT was recommended for further evaluation. CT of the left shoulder confirmed proximal humeral neck was fractured. I spoke with Dr. Huff, on-call orthopedic surgeon, he states that the patient can be put in a sling and treated conservatively until he follows up with him in the clinic next week. I also obtained a CT head and neck, as the patient stated he hit his head with the same fall. These were both unremarkable and no acute findings were appreciable. Patient agrees with plan to follow-up with orthopedics next week, and he will be sent with a prescription for hydrocodone for pain. Patient agrees with this plan. All other questions and concerns addressed at this time. Patient discharged home. Medical Records I reviewed the patient's medical records. Lab Data Radiology Impressions Shoulder X-Ray 06/01/23 20:03 IMPRESSION: Questionable impacted humeral neck fracture. Would recommend CT for further evaluation. Cervical Spine CT 06/01/23 21:42 IMPRESSION: 1. Negative for acute cervical spine pathology. 2. Multiple new left upper lobe pulmonary nodules. 3. For patients at low risk (minimal or absent history of smoking and of other known risk factors), no routine follow-up is indicated. For patients at high risk (history of smoking or of other known risk factors), consider optional CT Chest at 12 months. (Reference: Mohan) REFERENCES: Mohan Morris et al. Guidelines for Management of Incidental Pulmonary Nodules Detected on CT Images: From the Fleischner Society 2017. Radiology. 2017;284(1):228-243. Head CT 06/01/23 21:42 IMPRESSION: Negative for acute intracranial pathology. Shoulder CT 06/01/23 23:31 IMPRESSION: Positive for nondisplaced left proximal humeral neck fracture. All radiology interpretation(s) finalized by discharge Discharge Plan Discharge Patient Disposition: Home Clinical Impression: Closed fracture of neck of left humerus Qualifiers: Encounter type: initial encounter Qualified Code(s): S42.212A - Unspecified displaced fracture of surgical neck of left humerus, initial encounter for closed fracture Condition: Stable Prescriptions: New hydrocodone-acetaminophen 5-325 mg tablet 1 tab PO Q8H PRN (Reason: pain) Qty: 12 0RF No Action aspirin 81 mg tablet,delayed release (DR/EC) 81 mg PO QAM galantamine 4 mg tablet 4 mg PO BID Qty: 180 3RF pantoprazole 20 mg tablet,delayed release (DR/EC) 20 mg PO DAILY Qty: 90 1RF levocetirizine 5 mg tablet 5 mg PO QAM PRN (Reason: Allergic Symptoms) Rx Instructions: TAKE 1 TABLET BY MOUTH DAILY NEEDED FOR ALLERGY SYMPTOMS ferrous sulfate 325 mg (65 mg iron) tablet 325 mg PO QAM montelukast [Singulair] 10 mg tablet 10 mg PO QAM PRN (Reason: Allergic Symptoms) Linzess 72 mcg capsule 72 mcg PO QAM Rx Instructions: 340 B Centrum Men 8 mg iron- 200 mcg-600 mcg Tablet 1 tab PO QAM lubiprostone 24 mcg capsule 24 mcg PO BID Discharge Orders: Discharge ED (Routine); Ordered 06/02/23 Ordered By: Dashawn Vasquez Referrals: CARMELINA Blancas, MARKETING COPYWRITER [Primary Care Provider] - Discharge Diet: Usual diet Discharge Activity: Limit activity as instructed Patient Instructions: Proximal Humerus Fracture (ED) Activity Restrictions/Additional Instructions: Pain medications as directed. Keep arm in immobilizer. Avoid any strenuous use of the left arm. Follow-up with orthopedics next week. Return if you develop any new or worsening symptoms. Coding Level of Care Code ED Field Instructor for Chg Fwd Documented by User: Primo Eagle DO 06/04/23 05:48 HPI - Extremity Problem General: Chief complaint: Extremity Injury, Upper Stated complaint: fall Left shoulder injury Time Seen by Provider: 06/01/23 21:34 [facility] ED PFSH: Medical History Malabsorption of iron Shortness of breath Medication management COVID-19 Lower respiratory infection Primary osteoarthritis, right shoulder Lower respiratory infection Upper respiratory infection History of nonmelanoma skin cancer Skin cancer of scalp Cervical strain Cough Mixed hyperlipidemia Vitamin D deficiency Anemia Vitamin B 12 deficiency Anticoagulated Chronic a-fib GERD (gastroesophageal reflux disease) COPD (chronic obstructive pulmonary disease) Lung nodule H/O iron deficiency anemia History of prostate cancer Surgical History Hx of colonoscopy History of open heart surgery Social History Smoking and tobacco/nicotine status: never used tobacco/nicotine Second hand smoke exposure: No Alcohol intake: never Substance/Drug Use: never Course Vital Signs: Vital signs: Vital Signs Temperature 97.9 F 06/01/23 19:56 Pulse Rate 81 06/01/23 19:56 Respiratory Rate 17 06/01/23 19:56 Blood Pressure 152/79 06/01/23 19:56 Pulse Oximetry 96 06/01/23 19:56 Oxygen Delivery Me thod Room Air 06/01/23 19:56 MDM - Extremity (Nontraumatic) Medical Decision Making This patient was seen and evaluated in the emergency department today for evaluation of left shoulder pain status post fall today. Patient arrived in significant pain and was unable to move his arm. Vitals normal. He reports a prior surgery to the left shoulder but does not specify what kind. On examination patient has no range of motion due to the significance of his pain. There were no appreciable deformities or open fractures. He is also complaining of some right neck and head pain. Patient was given morphine and Zofran, which improved his pain greatly. Initial x-ray of the left shoulder was suspicious for impacted humeral neck fracture, but a CT was recommended for further evaluation. CT of the left shoulder confirmed proximal humeral neck was fractured. I spoke with Dr. Huff, on-call orthopedic surgeon, he states that the patient can be put in a sling and treated conservatively until he follows up with him in the clinic next week. I also obtained a CT head and neck, as the patient stated he hit his head with the same fall. These were both unremarkable and no acute findings were appreciable. Patient agrees with plan to follow-up with orthopedics next week, and he will be sent with a prescription for hydrocodone for pain. Patient agrees with this plan. All other questions and concerns addressed at this time. Patient discharged home. Chart reviewed and patient discussed with midlevel. Agree with assessment and plan. Lab Data Radiology Impressions Shoulder X-Ray 06/01/23 20:03 IMPRESSION: Questionable impacted humeral neck fracture. Would recommend CT for further evaluation. Cervical Spine CT 06/01/23 21:42 IMPRESSION: 1. Negative for acute cervical spine pathology. 2. Multiple new left upper lobe pulmonary nodules. 3. For patients at low risk (minimal or absent history of smoking and of other known risk factors), no routine follow-up is indicated. For patients at high risk (history of smoking or of other known risk factors), consider optional CT Chest at 12 months. (Reference: Mohan) REFERENCES: Jeimyholashell H, et al. Guidelines for Management of Incidental Pulmonary Nodules Detected on CT Images: From the Fleischner Society 2017. Radiology. 2017;284(1):228-243. Head CT 06/01/23 21:42 IMPRESSION: Negative for acute intracranial pathology. Shoulder CT 06/01/23 23:31 IMPRESSION: Positive for nondisplaced left proximal humeral neck fracture. Discharge Plan Discharge Patient Disposition: Home Clinical Impression: Closed fracture of neck of left humerus Qualifiers: Encounter type: initial encounter Qualified Code(s): S42.212A - Unspecified displaced fracture of surgical neck of left humerus, initial encounter for closed fracture Condition: Stable Prescriptions: New hydrocodone-acetaminophen 5-325 mg tablet 1 tab PO Q8H PRN (Reason: pain) Qty: 12 0RF No Action aspirin 81 mg tablet,delayed release (DR/EC) 81 mg PO QAM galantamine 4 mg tablet 4 mg PO BID Qty: 180 3RF pantoprazole 20 mg tablet,delayed release (DR/EC) 20 mg PO DAILY Qty: 90 1RF levocetirizine 5 mg tablet 5 mg PO QAM PRN (Reason: Allergic Symptoms) Rx Instructions: TAKE 1 TABLET BY MOUTH DAILY NEEDED FOR ALLERGY SYMPTOMS ferrous sulfate 325 mg (65 mg iron) tablet 325 mg PO QAM montelukast [Singulair] 10 mg tablet 10 mg PO QAM PRN (Reason: Allergic Symptoms) Linzess 72 mcg capsule 72 mcg PO QAM Rx Instructions: 340 B Centrum Men 8 mg iron- 200 mcg-600 mcg Tablet 1 tab PO QAM lubiprostone 24 mcg capsule 24 mcg PO BID Discharge Orders: Discharge ED (Routine); Ordered 06/02/23 Ordered By: Dashawn Vasquez Referrals: CARMELINA Blancas, MARKETING COPYWRITER [Primary Care Provider] - Discharge Diet: Usual diet Discharge Activity: Limit activity as instructed Patient Instructions: Proximal Humerus Fracture (ED) Activity Restrictions/Additional Instructions: Pain medications as directed. Keep arm in immobilizer. Avoid any strenuous use of the left arm. Follow-up with orthopedics next week. Return if you develop any new or worsening symptoms. Coding Level of Care Code ED Field Instructor for Tracy Walls
[2023-06-01] MEDS: ondansetron 2 mg/ML SDV 2 mL 4 MG IVP (22:14)
[2023-06-01] MEDS: morphine 4 mg/mL SDV 1 mL IVP (22:14)
--- NOTE | 2023-06-01 23:19 | PC.NURSE ---
Placed patient in shoulder immobilizer per provider.
--- NOTE | 2023-06-01 23:31 | CTR_ITS ---
PROCEDURE INFORMATION: Exam: CT Left Upper Extremity Without Contrast, Shoulder Exam date and time: 06/01/2023 11:34 PM Age: 88 years old Clinical indication: Pain and injury or trauma; Fall; Blunt trauma (contusions or hematomas); Shoulder; Left; Additional info: Questionable impacted humeral fracture TECHNIQUE: Imaging protocol: Computed tomography of the left upper extremity without contrast. Exam focused on the shoulder. Radiation optimization: All CT scans at this facility use at least one of these dose optimization techniques: automated exposure control; mA and/or kV adjustment per patient size (includes targeted exams where dose is matched to clinical indication); or iterative reconstruction. COMPARISON: CR (CHEST, ) 06/01/2023 9:37 PM RADIATION DOSE METRICS: Total DLP (mGy-cm): 335.53 FINDINGS: Bones/joints: Mildly comminuted acute fracture left proximal humeral neck. No significant displacement. Osseous demineralization. Severe productive arthritis changes of the glenohumeral joint. Osseous spurring and irregularity across the acromioclavicular joint. Soft tissues: Deltoid and subdeltoid soft tissue edema. CT/CT shoulder LT wo con* [id number] IMPRESSION: Positive for nondisplaced left proximal humeral neck fracture.
--- NOTE | 2023-06-03 13:59 | DCPLANNER ---
A message was sent to ortho on 06/02 at 1400. Clinic to contact patient for appt.
--- NOTE | 2023-06-04 14:55 | PC.SOCIAL ---
Ortho Referral Referral to ortho at this time. Clinic to contact patient with appt date/time.
== END 2023-06-02 01:03 | disposition home or self-care (01) ==
PROVIDERS: Emergency Provider Physician Assistant; PCP Nurse Practitioner Family
DX: S42.212A Unspecified displaced fracture of surgical neck of left humerus, initial encounter for closed fracture (principal); Z79.82 Long term (current) use of aspirin; E78.2 Mixed hyperlipidemia; J44.9 Chronic obstructive pulmonary disease, unspecified; Z85.46 Personal history of malignant neoplasm of prostate; W19.XXXA Unspecified fall, initial encounter
CPT/HCPCS: 70450; 72125; 73030; 73200; 96374; 96375; 99285; J2270; J2405

== ENCOUNTER → 2023-06-04 15:38 | Outpatient (BNVA) | payer MEDICARE, OTHER, SELFPAY | PROVIDERS: PCP Nurse Practitioner Family; Referring Provider Physician Assistant; Visit Provider Physician Assistant | DX: S42.212A Unspecified displaced fracture of surgical neck of left humerus, initial encounter for closed fracture (principal); W01.0XXA Fall on same level from slipping, tripping and stumbling without subsequent striking against object, initial encounter | CPT/HCPCS: 73060; 99213 ==

== ENCOUNTER 2023-06-07 12:30 | Outpatient (CLI) | payer MEDICARE, OTHER, SELFPAY ==
[2023-06-07] MEDS: iohexol 350 mg/mL 500 mL Btl (per mL) IV (12:56)
--- NOTE | 2023-06-07 13:00 | CT_ITS ---
WS: [id number] CTA HEAD TECHNIQUE: Contrast enhanced CTA of the head with coronal and sagittal reformatted images and maximum intensity projection (MIP) images. NASCET criteria utilized. CLINICAL INFORMATION: R51.9 - Headache, unspecified COMPARISON: CT head 06/01/2023 DLP: 1899.[address] scans at [facility] use at least one of these dose optimization techniques: automated e xposure control; mA and/or kV adjustment per patient size (includes targeted exams where dose is matc hed to clinical indication); or iterative reconstruction. FINDINGS: Moderate small vessel changes. Moderate parenchymal volume loss. Intracranial vascular calc ification. No extra-axial fluid collections. Partial opacification RIGHT mastoid air cells. LEFT mast oid air cells are well aerated. Mild polypoid mucosal thickening in the paranasal sinuses. Partial op acification of the LEFT frontoethmoidal recess. Normal posterior nasopharynx. INTRACRANIAL CTA: Both ICAs are patent at the skull base. Cavernous carotid calcification. A1 segments are patent. Ante rior communicating artery is patent. Normal vascularity to the MCA territories bilaterally. Dominant distal LEFT vertebral artery. Basilar artery is patent. Patent LEFT posterior communicating artery. Normal vascularity to the RING FACER territory bilaterally. Anterior projecting basilar artery aneur ysm measuring 2.5 mm. 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 Recommend 12-month follow-up CTA and consider neurology consultation . 2. Moderate small vessel changes with moderate parenchymal volume loss. 3. No other acute findings.
== END 2023-06-07 12:31 | disposition home or self-care (01) ==
LOC: RAD 12:30
PROVIDERS: PCP Nurse Practitioner Family; Visit Provider Nurse Practitioner Family
DX: I67.1 Cerebral aneurysm, nonruptured (principal)
CPT/HCPCS: 70496; Q9967

== ENCOUNTER → 2023-06-18 09:51 | Outpatient (BNVA) | payer MEDICARE, OTHER, SELFPAY | PROVIDERS: PCP Nurse Practitioner Family; Visit Provider Specialist | DX: I72.5 Aneurysm of other precerebral arteries (principal); G30.9 Alzheimer's disease, unspecified; F02.80 Dementia in other diseases classified elsewhere, unspecified severity, without behavioral disturbance, psychotic disturbance, mood disturbance, and anxiety; R51.9 Headache, unspecified; I48.11 Longstanding persistent atrial fibrillation; S42.212A Unspecified displaced fracture of surgical neck of left humerus, initial encounter for closed fracture; X58.XXXA Exposure to other specified factors, initial encounter | CPT/HCPCS: 73060; 99213; 99215 ==

== ENCOUNTER → 2023-07-23 15:27 | Outpatient (BNVA) | payer MEDICARE, OTHER, SELFPAY | PROVIDERS: PCP Nurse Practitioner Family; Visit Provider Physician Assistant | DX: S42.212A Unspecified displaced fracture of surgical neck of left humerus, initial encounter for closed fracture; W01.0XXA Fall on same level from slipping, tripping and stumbling without subsequent striking against object, initial encounter | CPT/HCPCS: 73060; 99213 ==

== ENCOUNTER → 2023-09-03 13:38 | Outpatient (BNVA) | payer MEDICARE, OTHER, SELFPAY | PROVIDERS: PCP Nurse Practitioner Family; Visit Provider Physician Assistant | DX: S42.212A Unspecified displaced fracture of surgical neck of left humerus, initial encounter for closed fracture (principal); X58.XXXA Exposure to other specified factors, initial encounter; M19.011 Primary osteoarthritis, right shoulder; M19.012 Primary osteoarthritis, left shoulder | CPT/HCPCS: 73060; 99213 ==

== ENCOUNTER → 2023-10-01 14:17 | Outpatient (BNVA) | payer MEDICARE, OTHER, SELFPAY | PROVIDERS: PCP Nurse Practitioner Family; Visit Provider Nurse Practitioner Family | DX: D48.5 Neoplasm of uncertain behavior of skin (principal); Z85.828 Personal history of other malignant neoplasm of skin; L57.0 Actinic keratosis; L21.8 Other seborrheic dermatitis; S10.80XA Unspecified superficial injury of other specified part of neck, initial encounter; X58.XXXA Exposure to other specified factors, initial encounter; L81.4 Other melanin hyperpigmentation; L82.1 Other seborrheic keratosis; D18.01 Hemangioma of skin and subcutaneous tissue | CPT/HCPCS: 11102; 17000; 99213 ==

== ENCOUNTER → 2023-11-05 08:10 | Outpatient (BNVA) | payer MEDICARE, OTHER, SELFPAY | PROVIDERS: PCP Nurse Practitioner Family; Visit Provider Dermatology | DX: C44.319 Basal cell carcinoma of skin of other parts of face (principal) | CPT/HCPCS: 13132; 17311 ==

== ENCOUNTER → 2023-12-19 10:07 | Outpatient (BNVA) | payer MEDICARE, OTHER, SELFPAY | PROVIDERS: PCP Nurse Practitioner Family; Visit Provider Nurse Practitioner Family | DX: Z79.899 Other long term (current) drug therapy (principal); E55.9 Vitamin D deficiency, unspecified; I48.20 Chronic atrial fibrillation, unspecified; E53.8 Deficiency of other specified B group vitamins; K90.9 Intestinal malabsorption, unspecified; D50.8 Other iron deficiency anemias; R03.0 Elevated blood-pressure reading, without diagnosis of hypertension; E78.2 Mixed hyperlipidemia; I48.92 Unspecified atrial flutter | CPT/HCPCS: 80053; 80061; 81003; 82306; 82607; 82728; 83550; 83880; 84443; 85025 ==

== ENCOUNTER → 2023-12-20 11:34 | Outpatient (BNVA) | payer MEDICARE, OTHER, SELFPAY | PROVIDERS: PCP Nurse Practitioner Family; Visit Provider Internal Medicine Cardiovascular Disease | DX: I48.92 Unspecified atrial flutter (principal); I48.91 Unspecified atrial fibrillation; R94.31 Abnormal electrocardiogram [ECG] [EKG] | CPT/HCPCS: 93005; 99204 ==

== ENCOUNTER → 2024-01-28 11:14 | Outpatient (BNVA) | payer MEDICARE, OTHER, SELFPAY | PROVIDERS: PCP Nurse Practitioner Family; Visit Provider Nurse Practitioner Family | DX: D50.8 Other iron deficiency anemias (principal) | CPT/HCPCS: 82272 ==

== ENCOUNTER → 2024-07-27 14:13 | Outpatient (BNVA) | payer MEDICARE, SELFPAY | PROVIDERS: PCP Nurse Practitioner Family; Visit Provider Nurse Practitioner Family | DX: E55.9 Vitamin D deficiency, unspecified (principal); I48.11 Longstanding persistent atrial fibrillation; E53.8 Deficiency of other specified B group vitamins; K21.9 Gastro-esophageal reflux disease without esophagitis; K90.9 Intestinal malabsorption, unspecified; D50.8 Other iron deficiency anemias; Z79.899 Other long term (current) drug therapy; E78.2 Mixed hyperlipidemia; I48.20 Chronic atrial fibrillation, unspecified | CPT/HCPCS: 80053; 80061; 81003; 82306; 82607; 82728; 82746; 83036; 83550; 84443; 85025; 85045 ==

== ENCOUNTER → 2024-07-28 16:14 | Outpatient (BNVA) | payer MEDICARE, SELFPAY | PROVIDERS: PCP Nurse Practitioner Family; Visit Provider Nurse Practitioner Family | DX: E55.9 Vitamin D deficiency, unspecified (principal); I48.11 Longstanding persistent atrial fibrillation; E53.8 Deficiency of other specified B group vitamins; K21.9 Gastro-esophageal reflux disease without esophagitis; K90.9 Intestinal malabsorption, unspecified; D50.8 Other iron deficiency anemias; Z79.899 Other long term (current) drug therapy; E78.2 Mixed hyperlipidemia; I48.20 Chronic atrial fibrillation, unspecified | CPT/HCPCS: 80503 ==

== ENCOUNTER → 2024-08-05 14:39 | Outpatient (BNVA) | payer MEDICARE, SELFPAY | PROVIDERS: PCP Nurse Practitioner Family; Visit Provider Specialist | DX: G30.9 Alzheimer's disease, unspecified (principal); I72.5 Aneurysm of other precerebral arteries; F02.80 Dementia in other diseases classified elsewhere, unspecified severity, without behavioral disturbance, psychotic disturbance, mood disturbance, and anxiety; R51.9 Headache, unspecified; I48.11 Longstanding persistent atrial fibrillation | CPT/HCPCS: 99213 ==

== ENCOUNTER 2024-08-28 11:19 | Outpatient (CLI) | payer MEDICARE, SELFPAY ==
--- NOTE | 2024-08-28 11:00 | CTR_ITS ---
PROCEDURE INFORMATION: Exam: CTA Head With Contrast, Arteriography Exam date and time: 08/28/2024 11:42 AM Age: 89 years old Clinical indication: Condition or disease; Aneurysm, cerebral; Additional info: I72.5 - aneurysm of other precerebral arteries TECHNIQUE: Imaging protocol: Computed tomographic angiography of the head with contrast. Exam focused on the arteries. 3D rendering (Not supervised by radiologist): MIP and/or 3D reconstructed images were created by the technologist. Radiation optimization: All CT scans at this facility use at least one of these dose optimization techniques: automated exposure control; mA and/or kV adjustment per patient size (includes targeted exams where dose is matched to clinical indication); or iterative reconstruction. Contrast material: OMNI 350; Contrast volume: 100 ml; Contrast route: INTRAVENOUS (IV); COMPARISON: CT angio head [id number] 06/07/2023 12:43 PM RADIATION DOSE METRICS: Total DLP (mGy-cm): 2476.62 FINDINGS: ANTERIOR CIRCULATION: Right internal carotid artery: There is mild atherosclerotic calcification of the cavernous and supraclinoid segments. No significant stenosis. No aneurysm detected. Right middle cerebral artery: No occlusion or significant stenosis. No aneurysm detected. Right anterior cerebral artery: No occlusion or significant stenosis. No aneurysm. Left internal carotid artery: There is mild atherosclerotic calcification of the cavernous and supraclinoic segments. No significant stenosis. No aneurysm detected. Left middle cerebral artery: No occlusion or significant stenosis. No aneurysm detected. Left anterior cerebral artery: No occlusion or significant stenosis. No aneurysm. POSTERIOR CIRCULATION: Right vertebral artery: No occlusion or significant stenosis. No aneurysm. Left vertebral artery: No occlusion or significant stenosis. No aneurysm. Basilar artery: There is a tiny 3 mm aneurysm at the tip of the basilar artery, not significantly changed compared to the prior study. No occlusion or significant stenosis. Right posterior cerebral artery: No occlusion or significant stenosis. No aneurysm. Left posterior cerebral artery: No occlusion or significant stenosis. No aneurysm. Brain: There is enlargement of the ventricular system and cortical sulci compatible with diffuse cerebral atrophy, age-related.There is patchy hypoattenuation in the deep white matter most suggestive of chronic small vessel ischemic change in a patient this age. No acute intracranial hemorrhage or significant mass effect is seen. No abnormal enhancement is demonstrated. Cerebral ventricles: Mildly enlarged related to atrophy. No hydrocephalus. Bones/joints: Intact. Soft tissues: Unremarkable. CT/CT angio head [id number] IMPRESSION: 1. 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 2. Age-related atrophy with patchy chronic small-vessel ischemic changes in the deep white matter. 3. No acute intracranial process appreciated. 4. No large vessel stenosis or occlusion.
[2024-08-28] MEDS: iohexol 350 mg/mL 500 mL Btl (per mL) IV (11:34)
== END 2024-08-28 11:20 | disposition home or self-care (01) ==
LOC: RAD 11:20
PROVIDERS: PCP Nurse Practitioner Family; Visit Provider Specialist
DX: I72.5 Aneurysm of other precerebral arteries (principal); G31.89 Other specified degenerative diseases of nervous system; R93.0 Abnormal findings on diagnostic imaging of skull and head, not elsewhere classified; I65.23 Occlusion and stenosis of bilateral carotid arteries
CPT/HCPCS: 70496

== ENCOUNTER → 2024-10-08 08:50 | Outpatient (BNVA) | payer MEDICARE, SELFPAY | PROVIDERS: PCP Nurse Practitioner Family; Visit Provider Nurse Practitioner Family | DX: L21.8 Other seborrheic dermatitis (principal); L81.4 Other melanin hyperpigmentation; L82.1 Other seborrheic keratosis; Z08 Encounter for follow-up examination after completed treatment for malignant neoplasm; Z85.828 Personal history of other malignant neoplasm of skin; D48.5 Neoplasm of uncertain behavior of skin; L57.0 Actinic keratosis | CPT/HCPCS: 11102; 17000; 69100; 99213 ==

== ENCOUNTER → 2024-10-29 09:02 | Outpatient (BNVA) | payer MEDICARE, SELFPAY | PROVIDERS: PCP Nurse Practitioner Family; Visit Provider Dermatology | DX: C44.41 Basal cell carcinoma of skin of scalp and neck (principal) | CPT/HCPCS: 17270; 99214 ==

== ENCOUNTER → 2025-01-19 13:12 | Outpatient (BNVA) | payer MEDICARE, SELFPAY | PROVIDERS: PCP Nurse Practitioner Family; Visit Provider Nurse Practitioner Family | DX: L81.4 Other melanin hyperpigmentation (principal); L57.8 Other skin changes due to chronic exposure to nonionizing radiation; X32.XXXA Exposure to sunlight, initial encounter; L73.8 Other specified follicular disorders; L82.1 Other seborrheic keratosis; D18.01 Hemangioma of skin and subcutaneous tissue; Z08 Encounter for follow-up examination after completed treatment for malignant neoplasm; Z85.828 Personal history of other malignant neoplasm of skin; D48.5 Neoplasm of uncertain behavior of skin | CPT/HCPCS: 11102; 99213 ==

== ENCOUNTER → 2025-01-25 15:43 | Outpatient (BNVA) | payer MEDICARE, SELFPAY | PROVIDERS: PCP Nurse Practitioner Family; Visit Provider Nurse Practitioner Family | DX: I48.11 Longstanding persistent atrial fibrillation (principal); E53.8 Deficiency of other specified B group vitamins; Z86.2 Personal history of diseases of the blood and blood-forming organs and certain disorders involving the immune mechanism; Z79.899 Other long term (current) drug therapy; I48.20 Chronic atrial fibrillation, unspecified; E78.2 Mixed hyperlipidemia | CPT/HCPCS: 80053; 80061; 81003; 82607; 82728; 82746; 83036; 83550; 84443; 85025 ==